=== PATIENT | male | born 1965 | race Two or more races ===

== ENCOUNTER 2016-03-01 13:46 | Inpatient (IN) | payer MEDICAID ==
[~2016-03-01] VITALS: Ht 170.2 cm; Wt 105.1 kg
[~2016-03-01 13:46] MED LIST: ACET-6 PO; ALL100T PO; ASPI-498 PO; CALC667T2 PO; CHOL50006 PO; DOC100C PO; FER325T PO; GABA300C8 PO; GLIP-116; Nifedipine PO; OMEP20CA5 PO; SIMV-8 PO; [UNRECOGNIZED DRUG - CODE] PO
[2016-03-01 17:31] LABS: Basophils # (auto) 0.1 uL; Basophils % (auto) 0.7 % (0.0-2.0); Eosinophils # (auto) 0 uL; Eosinophils % (auto) 0.1 % (0.0-7.0); Hematocrit 29.6 % (41.0-53.0); Hemoglobin 9.7 g/dL (13.5-17.5); Lymphocytes # (auto) 1.1 uL; Lymphocytes % (auto) 8.3 % (10.0-50.0); Mean Corpuscular Hgb Conc. 32.8 g/dL (32.0-36.0); Mean Corpuscular Volume 97.7 fL (80.0-100.0); Monocytes # (auto) 0.8 uL; Monocytes % (auto) 5.8 % (0.0-12.0); Neutrophils # (auto) 11.7 uL; Neutrophils % (auto) 85.1 % (37.0-80.0); Platelet Count (auto) 245 10^3/uL (140-450); Red Cell Distribution Width 15.3 % (11.6-16.0); White Blood Cell 13.7 10^3/uL (4.4-10.8)
[2016-03-01] MEDS ORDERED: cefTRIAXone 1GM/50ML D5W 50 ML IV ONE (18:30)
[2016-03-01] MEDS: ATORVASTATIN 20 MG TAB PO SCH (22:00)
[2016-03-01] MEDS ORDERED: ALLOPURINOL 100 MG TAB PO SCH (22:00)
[2016-03-01] MEDS ORDERED: DEXTROSE (50%) 50ML SYRG IV PRN (22:00)
[2016-03-01] MEDS ORDERED: AZITHROMYCIN 500MG/D5W 250ML 250 ML IV ONE (22:00)
[2016-03-01] MEDS ORDERED: GABAPENTIN 300 MG CAP PO SCH (22:00)
[2016-03-01] MEDS ORDERED: LACTULOSE 20Gm/30ML SOLN PO PRN (22:00)
[2016-03-01] MEDS ORDERED: ENOXAPARIN SOD 30 MG/0.3 ML SYRINGE SC ONE (22:15)
[2016-03-01 22:19] LABS: Potassium 6.7 mmol/L (3.5-5.1)
[2016-03-01 22:20] LABS: BUN/Creatinine Ratio 6.4
[2016-03-01] MEDS: DOCUSATE SOD 100 MG CAP PO SCH (22:35)
[2016-03-01] MEDS: ALBUTEROL SULF 2.5 MG/0.5ML(0.5%) NEB SOLN NEB SCH (23:41)
[2016-03-02] MEDS: ACCU-CHEK COMFORT CURVE STRIP VI SCH ×4 (00:06→17:50)
[2016-03-02 01:08] VITALS: BP 162/73
[2016-03-02] MEDS: ALBUTEROL SULF 2.5 MG/0.5ML(0.5%) NEB SOLN NEB SCH ×6 (02:43→22:33)
[2016-03-02 03:18] LABS: Basophils # (auto) 0 uL; Basophils % (auto) 0.3 % (0.0-2.0); Eosinophils # (auto) 0.1 uL; Hematocrit 29.5 % (41.0-53.0); Hemoglobin 9.6 g/dL (13.5-17.5); Lymphocytes # (auto) 1.7 uL; Lymphocytes % (auto) 14.6 % (10.0-50.0); Mean Corpuscular Hemoglobin 31.8 pg (28.0-32.0); Mean Corpuscular Hgb Conc. 32.7 g/dL (32.0-36.0); Mean Corpuscular Volume 97.4 fL (80.0-100.0); Mean Platelet Volume 8.2 fL (7.4-10.4); Monocytes # (auto) 0.9 uL; Monocytes % (auto) 7.7 % (0.0-12.0); Neutrophils % (auto) 76.4 % (37.0-80.0); Platelet Count (auto) 230 10^3/uL (140-450); White Blood Cell 11.8 10^3/uL (4.4-10.8)
[2016-03-02 03:37] LABS: Albumin 3.7 g/dL (3.4-5.0); Calcium 7.4 mg/dL (8.5-10.1)
[2016-03-02 03:45] LABS: BUN/Creatinine Ratio 7.1; Bilirubin, Total 0.4 mg/dL (0.2-1.0); Total Protein 7.1 g/dL (6.4-8.2)
[2016-03-02] MEDS: InsuLIN REG 1unit/0.01ml Soln (100units/ml) SC SCH ×4 (05:16→17:50)
[2016-03-02] MEDS: CALCIUM ACETATE 667 MG CAP PO SCH ×3 (08:00→18:00)
[2016-03-02] MEDS: FERROUS SULFATE 325 MG TAB PO SCH ×3 (08:00→17:49)
[2016-03-02] MEDS: cefTRIAXone 1GM/50ML D5W 50 ML IV SCH (09:00)
[2016-03-02] MEDS: ASPirin 81 mg TAB PO SCH (10:00)
[2016-03-02] MEDS: GABAPENTIN 100 MG CAP PO SCH (10:00)
[2016-03-02] MEDS: PANTOPRAZOLE SODIUM 40 MG/10 ML VIAL IV SCH (10:00)
[2016-03-02] MEDS: ALLOPURINOL 100 MG TAB PO SCH (10:00)
[2016-03-02] MEDS: ENOXAPARIN SOD 30 MG/0.3 ML SYRINGE SC SCH (10:00)
[2016-03-02] MEDS ORDERED: AZITHROMYCIN 500MG/D5W 250ML 250 ML IV SCH (10:00)
[2016-03-02] MEDS: DOCUSATE SOD 100 MG CAP PO SCH ×2 (10:00→20:54)
[2016-03-02] MEDS: NIFEdipine ER 30 MG TAB PO SCH (10:00)
[2016-03-02 12:55] VITALS: BP 175/89
[2016-03-02] MEDS ORDERED: SODIUM CHL 0.9% 1000 ML BAG XX ONE (14:15)
[2016-03-02] MEDS ORDERED: EPOETIN ALFA 10,000 UNIT/1 ML VIAL IV ONE (14:15)
[2016-03-02 16:00] VITALS: BP 131/71
[2016-03-02 20:39] VITALS: BP 163/77
[2016-03-02] MEDS ORDERED: ACETAMINOPHEN 325 MG TAB PO ONE (20:46)
[2016-03-02] MEDS: ATORVASTATIN 20 MG TAB PO SCH (20:54)
[2016-03-02] MEDS: AZITHROMYCIN 500MG/D5W 250ML 250 ML IV SCH (20:55)
[2016-03-02] MEDS: ACETAMINOPHEN 325 MG TAB PO PRN (21:19)
[2016-03-02 22:00] VITALS: BP 146/67
[2016-03-03] MEDS: ACCU-CHEK COMFORT CURVE STRIP VI SCH ×5 (00:21→23:07)
[2016-03-03] MEDS: InsuLIN REG 1unit/0.01ml Soln (100units/ml) SC SCH ×5 (00:25→23:12)
[2016-03-03] MEDS: ALBUTEROL SULF 2.5 MG/0.5ML(0.5%) NEB SOLN NEB SCH ×6 (02:57→22:40)
[2016-03-03 05:00] VITALS: BP 149/73
[2016-03-03 05:53] LABS: Basophils # (auto) 0 uL; Basophils % (auto) 0.5 % (0.0-2.0); DEFINITIVE VIEW TRANSMISSION; Eosinophils # (auto) 0 uL; Hematocrit 25.4 % (41.0-53.0); Hemoglobin 8.3 g/dL (13.5-17.5); Lymphocytes # (auto) 0.9 uL; Lymphocytes % (auto) 11.2 % (10.0-50.0); Mean Corpuscular Hemoglobin 31.7 pg (28.0-32.0); Mean Corpuscular Hgb Conc. 32.8 g/dL (32.0-36.0); Mean Corpuscular Volume 96.8 fL (80.0-100.0); Mean Platelet Volume 8.6 fL (7.4-10.4); Monocytes # (auto) 1.1 uL; Monocytes % (auto) 12.9 % (0.0-12.0); Neutrophils # (auto) 6.1 uL; Neutrophils % (auto) 75.4 % (37.0-80.0); Platelet Count (auto) 178 10^3/uL (140-450); Red Cell Distribution Width 14.8 % (11.6-16.0); White Blood Cell 8.1 10^3/uL (4.4-10.8)
[2016-03-03] MEDS: ACETAMINOPHEN 325 MG TAB PO PRN ×2 (06:14→21:16)
[2016-03-03] MEDS: THROAT LOZENGES(CEPASTAT) MT PRN ×2 (06:14→10:04)
[2016-03-03 06:15] LABS: Potassium 5.1 mmol/L (3.5-5.1)
[2016-03-03 06:23] LABS: BUN/Creatinine Ratio 6.5; Calcium 7.3 mg/dL (8.5-10.1); Magnesium 2.3 mg/dL (1.6-2.6)
[2016-03-03] MEDS: CALCIUM ACETATE 667 MG CAP PO SCH ×3 (08:09→18:04)
[2016-03-03] MEDS: FERROUS SULFATE 325 MG TAB PO SCH ×3 (08:09→18:04)
[2016-03-03 09:00] VITALS: BP 125/66
[2016-03-03] MEDS: PANTOPRAZOLE SODIUM 40 MG/10 ML VIAL IV SCH (09:47)
[2016-03-03] MEDS: ENOXAPARIN SOD 30 MG/0.3 ML SYRINGE SC SCH (09:47)
[2016-03-03] MEDS: cefTRIAXone 1GM/50ML D5W 50 ML IV SCH (09:47)
[2016-03-03] MEDS: DOCUSATE SOD 100 MG CAP PO SCH ×2 (09:47→21:15)
[2016-03-03] MEDS: ALLOPURINOL 100 MG TAB PO SCH (09:48)
[2016-03-03] MEDS: ASPirin 81 mg TAB PO SCH (09:48)
[2016-03-03] MEDS: GABAPENTIN 100 MG CAP PO SCH (09:48)
[2016-03-03] MEDS: NIFEdipine ER 30 MG TAB PO SCH (09:49)
[2016-03-03 13:00] VITALS: BP 118/59
[2016-03-03 17:00] VITALS: BP 130/72
[2016-03-03] MEDS: ATORVASTATIN 20 MG TAB PO SCH (21:15)
[2016-03-03] MEDS: AZITHROMYCIN 500MG/D5W 250ML 250 ML IV SCH (21:16)
[2016-03-03 21:47] VITALS: BP 132/72
[2016-03-04] VITALS (8 sets, daily range): BP systolic 115–161; BP diastolic 64–83
[2016-03-04] MEDS: ALBUTEROL SULF 2.5 MG/0.5ML(0.5%) NEB SOLN NEB SCH ×5 (02:45→19:37)
[2016-03-04] MEDS: InsuLIN REG 1unit/0.01ml Soln (100units/ml) SC SCH ×3 (05:30→18:00)
[2016-03-04] MEDS: ACCU-CHEK COMFORT CURVE STRIP VI SCH ×3 (05:30→18:16)
[2016-03-04 05:48] LABS: Basophils # (auto) 0.1 uL; Basophils % (auto) 1.1 % (0.0-2.0); DEFINITIVE VIEW TRANSMISSION; Eosinophils # (auto) 0.3 uL; Eosinophils % (auto) 4.9 % (0.0-7.0); Hematocrit 25.6 % (41.0-53.0); Hemoglobin 8.4 g/dL (13.5-17.5); Lymphocytes # (auto) 1.5 uL; Lymphocytes % (auto) 21.7 % (10.0-50.0); Mean Corpuscular Hemoglobin 31.9 pg (28.0-32.0); Mean Corpuscular Volume 96.9 fL (80.0-100.0); Mean Platelet Volume 8.5 fL (7.4-10.4); Monocytes # (auto) 0.9 uL; Monocytes % (auto) 13.5 % (0.0-12.0); Neutrophils % (auto) 58.8 % (37.0-80.0); Platelet Count (auto) 203 10^3/uL (140-450); Red Cell Distribution Width 15.1 % (11.6-16.0); White Blood Cell 6.8 10^3/uL (4.4-10.8)
[2016-03-04 06:31] LABS: BUN/Creatinine Ratio 7.2; Calcium 8.1 mg/dL (8.5-10.1); Magnesium 2.6 mg/dL (1.6-2.6)
[2016-03-04 06:42] LABS: Potassium 5.7 mmol/L (3.5-5.1)
[2016-03-04] MEDS ORDERED: SODIUM CHL 0.9% 1000 ML BAG XX ONE (08:00)
[2016-03-04] MEDS ORDERED: EPOETIN ALFA 10,000 UNIT/1 ML VIAL IV ONE (08:00)
[2016-03-04] MEDS: CALCIUM ACETATE 667 MG CAP PO SCH ×3 (08:09→18:16)
[2016-03-04] MEDS: FERROUS SULFATE 325 MG TAB PO SCH ×3 (08:09→18:16)
[2016-03-04] MEDS: cefTRIAXone 1GM/50ML D5W 50 ML IV SCH (09:00)
[2016-03-04] MEDS ORDERED: ALBUTEROL SULF 2.5 MG/0.5ML(0.5%) NEB SOLN ONE (09:55)
[2016-03-04] MEDS: DOCUSATE SOD 100 MG CAP PO SCH (10:00)
[2016-03-04] MEDS: NIFEdipine ER 30 MG TAB PO SCH (10:00)
[2016-03-04] MEDS: ENOXAPARIN SOD 30 MG/0.3 ML SYRINGE SC SCH (10:00)
[2016-03-04] MEDS ORDERED: DEXTROSE (50%) 50ML SYRG IV ONE (10:00)
[2016-03-04] MEDS ORDERED: InsuLIN REG 1unit/0.01ml Soln (100units/ml) IV ONE (10:00)
[2016-03-04] MEDS: ALLOPURINOL 100 MG TAB PO SCH (10:00)
[2016-03-04] MEDS: GABAPENTIN 100 MG CAP PO SCH (10:00)
[2016-03-04] MEDS ORDERED: ALBUTEROL SULF 2.5 MG/0.5ML(0.5%) NEB SOLN NEB ONE (10:00)
[2016-03-04] MEDS: ASPirin 81 mg TAB PO SCH (10:00)
[2016-03-04] MEDS: PANTOPRAZOLE SODIUM 40 MG/10 ML VIAL IV SCH (10:00)
[2016-03-04] MEDS ORDERED: LEVOFLOXACIN 500 MG TAB PO ONE (13:15)
[2016-03-04 14:01] LABS: Calcium 7.9 mg/dL (8.5-10.1); Potassium 5.4 mmol/L (3.5-5.1)
[2016-03-04 14:12] LABS: BUN/Creatinine Ratio 7.8
== END 2016-03-04 19:15 | disposition home or self-care (01) | DRG 139 ==
LOC: ER 13:48 → TELE 13:49 → DOU IN ICU 03-02 11:27 → TELE-WESTW 03-02 21:38
PROVIDERS: ADMIT Family Medicine; ATTEND Internal Medicine
PROC: 5A1D60Z (ICD-10-PCS; principal; 2016-03-03)
DX: J18.9 Pneumonia, unspecified organism (principal); J96.00 Acute respiratory failure, unspecified whether with hypoxia or hypercapnia; I12.0 Hypertensive chronic kidney disease with stage 5 chronic kidney disease or end stage renal disease; N18.6 End stage renal disease; E11.21 Type 2 diabetes mellitus with diabetic nephropathy; I27.2 Other secondary pulmonary hypertension; D63.1 Anemia in chronic kidney disease; E87.70 Fluid overload, unspecified; D72.829 Elevated white blood cell count, unspecified; E11.22 Type 2 diabetes mellitus with diabetic chronic kidney disease; E11.319 Type 2 diabetes mellitus with unspecified diabetic retinopathy without macular edema; E66.09 Other obesity due to excess calories; Z68.36 Body mass index [BMI] 36.0-36.9, adult; E78.5 Hyperlipidemia, unspecified; E87.5 Hyperkalemia; H54.0 Blindness, both eyes; J98.11 Atelectasis; K21.9 Gastro-esophageal reflux disease without esophagitis; M10.9 Gout, unspecified; Z82.49 Family history of ischemic heart disease and other diseases of the circulatory system; Z83.3 Family history of diabetes mellitus; Z99.2 Dependence on renal dialysis; Z98.890 Other specified postprocedural states
CPT/HCPCS: 36415; 71010; 71020; 71250; 80048; 80053; 80061; 82962; 83036; 83735; 84100; 84484; 85025; 87040; 87081; 90935; 93005; 94640; 94644; 96365; 96367; 96372; 96375; C9113; J0696; J0885; J1815

== ENCOUNTER 2016-06-11 11:05 | Inpatient (IN) | payer MEDICAID ==
[~2016-06-11] VITALS: Ht 170.2 cm; Wt 101.0 kg
[2016-06-11 12:06] LABS: Basophils # (auto) 0.1 uL; Basophils % (auto) 1.4 % (0.0-2.0); Eosinophils # (auto) 0 uL; Eosinophils % (auto) 0.4 % (0.0-7.0); Hematocrit 32.1 % (41.0-53.0); Hemoglobin 10.8 g/dL (13.5-17.5); Lymphocytes # (auto) 1.3 uL; Lymphocytes % (auto) 13.7 % (10.0-50.0); Mean Corpuscular Hemoglobin 30.7 pg (28.0-32.0); Mean Corpuscular Hgb Conc. 33.6 g/dL (32.0-36.0); Mean Corpuscular Volume 91.3 fL (80.0-100.0); Mean Platelet Volume 8.8 fL (7.4-10.4); Monocytes # (auto) 0.6 uL; Monocytes % (auto) 5.9 % (0.0-12.0); Neutrophils # (auto) 7.5 uL; Neutrophils % (auto) 78.6 % (37.0-80.0); Platelet Count (auto) 193 10^3/uL (140-450); Red Cell Distribution Width 14.5 % (11.6-16.0); White Blood Cell 9.6 10^3/uL (4.4-10.8)
[2016-06-11 12:24] LABS: INR 1.1 (0.9-1.15); Partial Thromboplastin Time 30.1 sec (22.64-33.71); Prothrombin Time 11.9 sec (9.37-12.3)
[2016-06-11 12:35] LABS: Albumin 3.8 g/dL (3.4-5.0); Bilirubin, Total 0.6 mg/dL (0.2-1.0); Calcium 8.5 mg/dL (8.5-10.1); Magnesium 3.1 mg/dL (1.6-2.6); Total Protein 7.6 g/dL (6.4-8.2)
[2016-06-11] MEDS ORDERED: ALBUTEROL SULF 2.5 MG/0.5ML(0.5%) NEB SOLN NEB STA ×2 (12:43→14:09)
[2016-06-11] MEDS ORDERED: CALCIUM GLUC 4.65 MEQ/10ML 4.65 MEQ in SODIUM CHL 0.9% 50 ML IV ONE ×2 (12:45→14:15)
[2016-06-11] MEDS ORDERED: SODIUM BICARBONATE 8.4% INJ 50ML SYRINGE IV ONE ×2 (12:45→14:15)
[2016-06-11] MEDS ORDERED: DEXTROSE (50%) 50ML SYRG IV ONE ×2 (12:45→14:15)
[2016-06-11] MEDS ORDERED: InsuLIN REG 1unit/0.01ml Soln (100units/ml) IV ONE ×2 (12:45→14:15)
[2016-06-11 13:19] LABS: B-Type Natriuretic Peptide 1055.67 pg/mL (0-100)
[2016-06-11 13:20] LABS: Temperature: 23.6 C (20.0-25.0)
[2016-06-11] MEDS ORDERED: PIPERACILLIN-TAZOB 3.375GM 100 ML IV ONE (14:15)
[2016-06-11] MEDS ORDERED: AZITHROMYCIN 500MG/D5W 250ML 250 ML IV ONE (14:15)
[2016-06-11] MEDS ORDERED: ONDANSETRON HCL 4 MG/2 ML VIAL IV PRN (14:30)
[2016-06-11] MEDS ORDERED: NITROGLYCERIN 0.4 MG SL TAB SL PRN (14:30)
[2016-06-11] MEDS ORDERED: MORPHINE SULF INJ 2 MG/ML SYRINGE 1ML IV PRN ×2 (14:30)
[2016-06-11] MEDS ORDERED: HYDROcodone-ACET 5/325MG TAB PO PRN (14:30)
[2016-06-11] MEDS ORDERED: DEXTROSE (50%) 50ML SYRG IV PRN (14:30)
[2016-06-11] MEDS ORDERED: cefTRIAXone 1GM/50ML D5W 50 ML IV ONE (15:00)
[2016-06-11] MEDS ORDERED: PANTOPRAZOLE SODIUM 40 MG/10 ML VIAL IV ONE (15:00)
[2016-06-11] MEDS ORDERED: NIFEdipine ER 30 MG TAB PO ONE (15:00)
[2016-06-11] MEDS ORDERED: EPOETIN ALFA 2,000 UNIT/1 ML VIAL IV ONE (15:45)
[2016-06-11] MEDS ORDERED: EPOETIN ALFA 3,000 UNIT/1 ML VIAL IV ONE (15:45)
[2016-06-11] MEDS: ACCU-CHEK COMFORT CURVE STRIP VI SCH ×2 (17:21→22:04)
[2016-06-11] MEDS: InsuLIN REG 1unit/0.01ml Soln (100units/ml) SC SCH ×2 (17:21→22:04)
[2016-06-11] MEDS: CALCIUM ACETATE 667 MG CAP PO SCH (18:21)
[2016-06-11 20:40] VITALS: BP 143/71
[2016-06-11 22:00] VITALS: BP 143/71
[2016-06-11] MEDS ORDERED: GABAPENTIN 300 MG CAP PO SCH (22:00)
[2016-06-11] MEDS ORDERED: GABAPENTIN 100 MG CAP PO SCH (22:00)
[2016-06-11] MEDS ORDERED: ATORVASTATIN 20 MG TAB PO SCH (22:00)
[2016-06-11 23:21] VITALS: BP 143/71
[2016-06-12 00:55] LABS: Urine Bilirubin Negative (Negative); Urine Color Yellow (Yellow); Urine Ketone Negative (Negative); Urine Nitrite Negative (Negative); Urine RBC 3 /hpf (0 - 3); Urine Squamous Epithelial Cell FEW /hpf (<5); Urine Urobilinogen Normal (Negative)
[2016-06-12 00:56] LABS: Urine Blood 1+ /uL (Negative); Urine Glucose 2+ mg/dL (Normal)
[2016-06-12 05:00] VITALS: BP 124/70
[2016-06-12 05:54] LABS: Basophils # (auto) 0 uL; Basophils % (auto) 0.7 % (0.0-2.0); Eosinophils # (auto) 0.2 uL; Eosinophils % (auto) 3.4 % (0.0-7.0); Hematocrit 29.2 % (41.0-53.0); Hemoglobin 9.6 g/dL (13.5-17.5); Lymphocytes # (auto) 1.5 uL; Lymphocytes % (auto) 21.3 % (10.0-50.0); Mean Corpuscular Hemoglobin 30.8 pg (28.0-32.0); Mean Corpuscular Hgb Conc. 32.9 g/dL (32.0-36.0); Mean Corpuscular Volume 93.5 fL (80.0-100.0); Mean Platelet Volume 9.1 fL (7.4-10.4); Monocytes # (auto) 0.8 uL; Monocytes % (auto) 10.8 % (0.0-12.0); Neutrophils # (auto) 4.6 uL; Neutrophils % (auto) 63.8 % (37.0-80.0); Platelet Count (auto) 196 10^3/uL (140-450); Red Cell Distribution Width 14.7 % (11.6-16.0); White Blood Cell 7.2 10^3/uL (4.4-10.8)
[2016-06-12] MEDS: ACCU-CHEK COMFORT CURVE STRIP VI SCH ×2 (06:23→12:18)
[2016-06-12 06:24] LABS: Calcium 7.7 mg/dL (8.5-10.1); Potassium 5.1 mmol/L (3.5-5.1)
[2016-06-12] MEDS: InsuLIN REG 1unit/0.01ml Soln (100units/ml) SC SCH ×2 (06:24→12:19)
[2016-06-12 08:00] VITALS: BP 122/69
[2016-06-12] MEDS: CALCIUM ACETATE 667 MG CAP PO SCH ×2 (08:07→12:18)
[2016-06-12 09:00] VITALS: BP 122/69
[2016-06-12] MEDS ORDERED: cefTRIAXone 1GM/50ML D5W 50 ML IV SCH (09:00)
[2016-06-12] MEDS ORDERED: PANTOPRAZOLE SODIUM 40 MG/10 ML VIAL IV SCH (10:00)
[2016-06-12] MEDS ORDERED: AZITHROMYCIN 500MG/D5W 250ML 250 ML IV SCH (10:00)
[2016-06-12] MEDS ORDERED: NIFEdipine ER 30 MG TAB PO SCH (10:00)
[2016-06-12] MEDS ORDERED: ALBUAER3 IN (12:29)
[2016-06-12] MEDS ORDERED: LEVO250T45 PO (12:29)
[2016-06-12] MEDS ORDERED: LEVOFLOXACIN 500 MG TAB PO ONE (12:30)
[2016-06-12 13:00] VITALS: BP 122/74
[2016-06-12 15:37] VITALS: BP 122/69
[2016-06-13] MEDS ORDERED: EPOETIN ALFA 10,000 UNIT/1 ML VIAL IV ONE (08:00)
[2016-06-13] MEDS ORDERED: SODIUM CHL 0.9% 1000 ML BAG XX ONE (08:00)
== END 2016-06-12 18:15 | disposition home health service (06) | DRG 139 ==
LOC: ER 11:07 → TELE 11:08 → TELE-WESTW 20:35
PROVIDERS: ADMIT Internal Medicine; ATTEND Internal Medicine
PROC: 5A1D00Z (ICD-10-PCS; principal; 2016-06-11)
DX: J18.9 Pneumonia, unspecified organism (principal); I50.43 Acute on chronic combined systolic (congestive) and diastolic (congestive) heart failure; N18.6 End stage renal disease; E11.21 Type 2 diabetes mellitus with diabetic nephropathy; E11.40 Type 2 diabetes mellitus with diabetic neuropathy, unspecified; I13.2 Hypertensive heart and chronic kidney disease with heart failure and with stage 5 chronic kidney disease, or end stage renal disease; E87.5 Hyperkalemia; Z99.2 Dependence on renal dialysis; E66.9 Obesity, unspecified; D63.8 Anemia in other chronic diseases classified elsewhere; E11.22 Type 2 diabetes mellitus with diabetic chronic kidney disease; E78.5 Hyperlipidemia, unspecified; K21.9 Gastro-esophageal reflux disease without esophagitis; Z82.49 Family history of ischemic heart disease and other diseases of the circulatory system; Z83.3 Family history of diabetes mellitus; K59.09 Other constipation; Z71.9 Counseling, unspecified; M10.9 Gout, unspecified
CPT/HCPCS: 36415; 71010; 71020; 74176; 80048; 80053; 81001; 82962; 83036; 83605; 83735; 83880; 84132; 85025; 85610; 85730; 87040; 94644; 94761; 96365; 96367; 96368; 96375; C9113; J0696; J0885; J1815; J2405; J2543; Q4081

== ENCOUNTER 2016-06-24 22:30 | Emergency (ER) | payer MEDICAID ==
[~2016-06-24] VITALS: Ht 162.6 cm; Wt 99.8 kg
[~2016-06-24 22:30] MED LIST changes: +ALBUAER3 IN; +LEVO250T45 PO
[2016-06-24] MEDS ORDERED: ACETAMINOPHEN 325 MG TAB PO ONE (23:30)
[2016-06-24 23:56] LABS: Basophils # (auto) 0.1 uL; Eosinophils # (auto) 0.1 uL; Eosinophils % (auto) 1.5 % (0.0-7.0); Hemoglobin 9.8 g/dL (13.5-17.5); Lymphocytes # (auto) 1.3 uL; Lymphocytes % (auto) 13.5 % (10.0-50.0); Mean Corpuscular Hemoglobin 30.3 pg (28.0-32.0); Mean Corpuscular Hgb Conc. 32.5 g/dL (32.0-36.0); Mean Corpuscular Volume 93.3 fL (80.0-100.0); Mean Platelet Volume 8.4 fL (7.4-10.4); Monocytes # (auto) 0.7 uL; Monocytes % (auto) 7.5 % (0.0-12.0); Neutrophils # (auto) 7.1 uL; Neutrophils % (auto) 76.5 % (37.0-80.0); Platelet Count (auto) 251 10^3/uL (140-450); Red Cell Distribution Width 14.4 % (11.6-16.0); White Blood Cell 9.3 10^3/uL (4.4-10.8)
[2016-06-25 00:08] LABS: Albumin 3.8 g/dL (3.4-5.0); Anion Gap 12 (5-15); Aspartate Aminotransferase 19 U/L (15-37); BUN/Creatinine Ratio 5.1; Blood Urea Nitrogen 37 mg/dL (7-18); Calcium 7.3 mg/dL (8.5-10.1); Carbon Dioxide 31 mmol/L (21-32); Chloride 96 mmol/L (98-107); GFR African American 10 mL/min; GFR Non-African American 8 mL/min; Glucose 109 mg/dL (74-106); Potassium 3.7 mmol/L (3.5-5.1); Sodium 139 mmol/L (136-145)
[2016-06-25 00:13] LABS: Alkaline Phosphatase 122 U/L (45-117); Bilirubin, Total 0.6 mg/dL (0.2-1.0); Total Protein 7.4 g/dL (6.4-8.2)
[2016-06-25] MEDS ORDERED: LEVOFLOXACIN 750MG 150 ML IV ONE (03:45)
[2016-06-25] MEDS ORDERED: SODIUM CHLORIDE 0.9% 500 ML IV ONE (03:45)
[2016-06-25 05:54] VITALS: BP 147/80
== END 2016-06-25 06:08 | disposition home or self-care (01) ==
LOC: EDBD 22:30 → ER 22:59
DX: J06.9 Acute upper respiratory infection, unspecified (principal); K52.9 Noninfective gastroenteritis and colitis, unspecified; E11.22 Type 2 diabetes mellitus with diabetic chronic kidney disease; I12.0 Hypertensive chronic kidney disease with stage 5 chronic kidney disease or end stage renal disease; N18.6 End stage renal disease; K21.9 Gastro-esophageal reflux disease without esophagitis; E78.5 Hyperlipidemia, unspecified
CPT/HCPCS: 36415; 71010; 80053; 83605; 84484; 85025; 87040; 93005; 96365; 99285; J1956; J7040

== ENCOUNTER 2016-09-16 00:54 | Inpatient (IN) | payer MEDICAID ==
[~2016-09-16] VITALS: Ht 170.2 cm; Wt 101.1 kg
[~2016-09-16 00:54] MED LIST changes: +GABA-497 PO; -GABA300C8 PO; -OMEP20CA5 PO; +OMEP20CA74 PO
[2016-09-16 01:33] LABS: Basophils # (auto) 0.1 uL; CONDITION Y; Eosinophils # (auto) 0.5 uL; Eosinophils % (auto) 6.1 % (0.0-7.0); Hematocrit 35.3 % (41.0-53.0); Hemoglobin 11.6 g/dL (13.5-17.5); Lymphocytes # (auto) 1.9 uL; Lymphocytes % (auto) 23.9 % (10.0-50.0); Mean Corpuscular Volume 93.8 fL (80.0-100.0); Mean Platelet Volume 8.2 fL (7.4-10.4); Monocytes # (auto) 0.9 uL; Monocytes % (auto) 10.9 % (0.0-12.0); Neutrophils # (auto) 4.6 uL; Neutrophils % (auto) 58.1 % (37.0-80.0); Platelet Count (auto) 275 10^3/uL (140-450); Red Cell Distribution Width 16.8 % (11.6-16.0); White Blood Cell 7.8 10^3/uL (4.4-10.8)
[2016-09-16 01:47] LABS: INR 1.06 (0.9-1.15); Partial Thromboplastin Time 27.8 sec (22.64-33.71); Prothrombin Time 11.6 sec (9.37-12.3)
[2016-09-16 01:51] LABS: Albumin 3.8 g/dL (3.4-5.0); Anion Gap 15 (5-15); Blood Urea Nitrogen 52 mg/dL (7-18); Calcium 7.5 mg/dL (8.5-10.1); Carbon Dioxide 28 mmol/L (21-32); Chloride 96 mmol/L (98-107); Glucose 169 mg/dL (74-106); Magnesium 2.6 mg/dL (1.6-2.6); Potassium 4.5 mmol/L (3.5-5.1); Sodium 139 mmol/L (136-145)
[2016-09-16 01:58] LABS: Temperature: 21.8 C (20.0-25.0)
[2016-09-16 01:59] LABS: Alkaline Phosphatase 158 U/L (45-117); Aspartate Aminotransferase 10 U/L (15-37); BUN/Creatinine Ratio 4.9; Bilirubin, Total 0.4 mg/dL (0.2-1.0); GFR African American 7 mL/min; GFR Non-African American 5 mL/min; Total Protein 7.4 g/dL (6.4-8.2)
[2016-09-16] MEDS ORDERED: DEXTROSE (50%) 50ML SYRG IV PRN (09:15)
[2016-09-16] MEDS ORDERED: ARTIFICIAL TEARS 15ml EACHEYE PRN (09:30)
[2016-09-16] MEDS ORDERED: LORazepam 0.5 MG TAB PO PRN (09:30)
[2016-09-16] MEDS ORDERED: ZOLPIDEM TARTRATE 5 MG TAB PO PRN (09:30)
[2016-09-16] MEDS ORDERED: ALUM & MAG HYDROX-SIMETH LIQ(MAALOX) 30 ML PO ONE (09:30)
[2016-09-16] MEDS ORDERED: ONDANSETRON HCL 4 MG/2 ML VIAL IV PRN (09:30)
[2016-09-16] MEDS ORDERED: ACETAMINOPHEN 325 MG TAB PO PRN (09:30)
[2016-09-16] MEDS ORDERED: NITROGLYCERIN 0.4 MG SL TAB SL PRN ×2 (09:30)
[2016-09-16] MEDS ORDERED: MORPHINE SULF INJ 2 MG/ML SYRINGE 1ML IV PRN ×2 (09:30)
[2016-09-16] MEDS ORDERED: SODIUM CHL 0.9% 1000 ML BAG XX ONE (10:00)
[2016-09-16] MEDS: CARVEDILOL 3.125 MG TAB PO SCH ×2 (10:30→22:29)
[2016-09-16] MEDS: GABAPENTIN 100 MG CAP PO SCH ×2 (10:30→22:30)
[2016-09-16] MEDS: CLOPIDOGREL BISULFATE 75 MG TAB PO SCH (10:30)
[2016-09-16] MEDS: ASPirin 81 mg TAB PO SCH (10:30)
[2016-09-16] MEDS: DOCUSATE SOD 100 MG CAP PO SCH (10:31)
[2016-09-16] MEDS: NIFEdipine ER 30 MG TAB PO SCH (10:31)
[2016-09-16] MEDS: ENALAPRIL MALEATE 2.5 MG TAB PO SCH ×2 (10:31→22:29)
[2016-09-16] MEDS: glipiZIDE 5 MG TAB PO SCH ×2 (11:05→18:45)
[2016-09-16] MEDS: CALCIUM ACETATE 667 MG CAP PO SCH ×2 (12:52→18:45)
[2016-09-16] MEDS: ACCU-CHEK COMFORT CURVE STRIP VI SCH ×3 (12:53→22:00)
[2016-09-16] MEDS: InsuLIN REG 1unit/0.01ml Soln (100units/ml) SC SCH ×3 (12:58→22:00)
[2016-09-16] MEDS ORDERED: GABAPENTIN 300 MG CAP PO SCH (14:00)
[2016-09-16 15:43] VITALS: BP 148/85
[2016-09-16] MEDS: SODIUM CHLOR 0.9% PF (SALINE LOCK) 10ML VIAL IV SCH ×2 (17:44→22:29)
[2016-09-16 20:00] VITALS: BP 142/84
[2016-09-16 22:00] VITALS: BP 142/84
[2016-09-16] MEDS: ATORVASTATIN 20 MG TAB PO SCH (22:28)
[2016-09-17 05:00] VITALS: BP 147/78
[2016-09-17] MEDS: SODIUM CHLOR 0.9% PF (SALINE LOCK) 10ML VIAL IV SCH ×3 (06:24→21:52)
[2016-09-17] MEDS: glipiZIDE 5 MG TAB PO SCH ×2 (06:24→17:41)
[2016-09-17] MEDS: ACCU-CHEK COMFORT CURVE STRIP VI SCH ×4 (06:24→21:54)
[2016-09-17] MEDS: InsuLIN REG 1unit/0.01ml Soln (100units/ml) SC SCH ×4 (06:25→21:54)
[2016-09-17 06:50] LABS: Basophils # (auto) 0.1 uL; CONDITION Y; Eosinophils # (auto) 0.5 uL; Eosinophils % (auto) 7.1 % (0.0-7.0); Hematocrit 37.4 % (41.0-53.0); Hemoglobin 12.3 g/dL (13.5-17.5); Lymphocytes # (auto) 1.5 uL; Lymphocytes % (auto) 23.3 % (10.0-50.0); Mean Corpuscular Hemoglobin 30.8 pg (28.0-32.0); Mean Corpuscular Hgb Conc. 32.8 g/dL (32.0-36.0); Mean Corpuscular Volume 93.7 fL (80.0-100.0); Mean Platelet Volume 8.6 fL (7.4-10.4); Monocytes # (auto) 0.7 uL; Monocytes % (auto) 10.9 % (0.0-12.0); Neutrophils # (auto) 3.8 uL; Neutrophils % (auto) 57.7 % (37.0-80.0); Platelet Count (auto) 268 10^3/uL (140-450); Red Cell Distribution Width 17.2 % (11.6-16.0); White Blood Cell 6.6 10^3/uL (4.4-10.8)
[2016-09-17 07:26] LABS: BUN/Creatinine Ratio 4.5; Bilirubin, Total 0.5 mg/dL (0.2-1.0); Calcium 8.9 mg/dL (8.5-10.1); Magnesium 2.9 mg/dL (1.6-2.6); Potassium 4.4 mmol/L (3.5-5.1); Total Protein 7.8 g/dL (6.4-8.2)
[2016-09-17 08:00] VITALS: BP 164/91
[2016-09-17] MEDS: CALCIUM ACETATE 667 MG CAP PO SCH ×3 (08:00→18:07)
[2016-09-17 08:30] VITALS: BP 164/91
[2016-09-17] MEDS: ASPirin 81 mg TAB PO SCH (10:12)
[2016-09-17] MEDS: NIFEdipine ER 30 MG TAB PO SCH ×2 (10:12→23:23)
[2016-09-17] MEDS: CLOPIDOGREL BISULFATE 75 MG TAB PO SCH (10:12)
[2016-09-17] MEDS: ENALAPRIL MALEATE 2.5 MG TAB PO SCH (10:13)
[2016-09-17] MEDS: GABAPENTIN 100 MG CAP PO SCH ×2 (10:13→21:53)
[2016-09-17] MEDS: DOCUSATE SOD 100 MG CAP PO SCH (10:13)
[2016-09-17] MEDS: CARVEDILOL 3.125 MG TAB PO SCH ×2 (10:13→21:53)
[2016-09-17] MEDS ORDERED: CLOPIDOGREL 300 MG TAB PO ONE (12:15)
[2016-09-17 16:23] VITALS: BP 148/76
[2016-09-17 20:00] VITALS: BP 166/82
[2016-09-17] MEDS: ATORVASTATIN 20 MG TAB PO SCH (21:53)
[2016-09-17] MEDS: ENALAPRIL MALEATE 10 MG TAB PO SCH (21:54)
[2016-09-17 22:00] VITALS: BP 166/82
[2016-09-18 05:00] VITALS: BP 149/82
[2016-09-18] MEDS: ACCU-CHEK COMFORT CURVE STRIP VI SCH ×4 (06:22→21:53)
[2016-09-18] MEDS: SODIUM CHLOR 0.9% PF (SALINE LOCK) 10ML VIAL IV SCH ×3 (06:22→21:38)
[2016-09-18] MEDS: glipiZIDE 5 MG TAB PO SCH ×2 (06:23→18:00)
[2016-09-18] MEDS: InsuLIN REG 1unit/0.01ml Soln (100units/ml) SC SCH ×4 (06:23→22:08)
[2016-09-18 08:00] VITALS: BP 168/93
[2016-09-18 09:16] VITALS: BP 168/93
[2016-09-18] MEDS: CALCIUM ACETATE 667 MG CAP PO SCH ×3 (09:27→18:00)
[2016-09-18] MEDS: ASPirin 81 mg TAB PO SCH (09:27)
[2016-09-18] MEDS: ENALAPRIL MALEATE 10 MG TAB PO SCH ×2 (09:28→21:37)
[2016-09-18] MEDS: GABAPENTIN 100 MG CAP PO SCH ×2 (09:28→21:38)
[2016-09-18] MEDS: CLOPIDOGREL BISULFATE 75 MG TAB PO SCH (09:28)
[2016-09-18] MEDS: NIFEdipine ER 30 MG TAB PO SCH ×2 (09:29→21:38)
[2016-09-18] MEDS: CARVEDILOL 3.125 MG TAB PO SCH ×2 (09:29→21:37)
[2016-09-18] MEDS: DOCUSATE SOD 100 MG CAP PO SCH (09:29)
[2016-09-18] MEDS ORDERED: ERGOCALCIFEROL 50,000 UNIT(1.25MG) CAP PO SCH (10:00)
[2016-09-18] MEDS ORDERED: SODIUM CHL 0.9% 1000 ML BAG XX ONE (10:15)
[2016-09-18] MEDS: LIDOCAINE 2%HCL (LOCAL ANESTH.) INJ 20ML MDV ONE (10:58)
[2016-09-18] MEDS: IODIXANOL 320MG/ML 100ML BTL IV ONE ×2 (10:58→14:04)
[2016-09-18] MEDS: MIDAZOLAM HCL 1MG/1ML-2 ML VIAL ONE (12:35)
[2016-09-18] MEDS: SODIUM CHL 0.9% 50 ML ONE (12:36)
[2016-09-18] MEDS: fentaNYL CITRATE 100 MCG/2 ML VL ONE (12:36)
[2016-09-18] MEDS: ANGIOMAX 250 MG VIAL IV ONE (12:36)
[2016-09-18] MEDS: TICAGRELOR 90 MG TAB ONE ×2 (14:30→14:40)
[2016-09-18] MEDS ORDERED: ASPirin 325 MG TAB ONE (14:31)
[2016-09-18 17:00] VITALS: BP 124/72
[2016-09-18] MEDS: ATORVASTATIN 20 MG TAB PO SCH (21:38)
[2016-09-18 22:00] VITALS: BP 140/75
[2016-09-19] VITALS (7 sets, daily range): BP systolic 124–148; BP diastolic 66–82
[2016-09-19] MEDS: glipiZIDE 5 MG TAB PO SCH ×2 (06:11→18:00)
[2016-09-19] MEDS: InsuLIN REG 1unit/0.01ml Soln (100units/ml) SC SCH ×3 (06:19→17:00)
[2016-09-19] MEDS: SODIUM CHLOR 0.9% PF (SALINE LOCK) 10ML VIAL IV SCH ×2 (06:19→14:00)
[2016-09-19] MEDS: ACCU-CHEK COMFORT CURVE STRIP VI SCH ×3 (06:19→17:00)
[2016-09-19] MEDS: CALCIUM ACETATE 667 MG CAP PO SCH ×3 (10:18→18:44)
[2016-09-19] MEDS: NIFEdipine ER 30 MG TAB PO SCH (10:18)
[2016-09-19] MEDS: DOCUSATE SOD 100 MG CAP PO SCH (10:18)
[2016-09-19] MEDS: CLOPIDOGREL BISULFATE 75 MG TAB PO SCH (10:19)
[2016-09-19] MEDS: ASPirin 81 mg TAB PO SCH (10:19)
[2016-09-19] MEDS: CARVEDILOL 3.125 MG TAB PO SCH (10:19)
[2016-09-19] MEDS: GABAPENTIN 100 MG CAP PO SCH (10:19)
[2016-09-19] MEDS: ENALAPRIL MALEATE 10 MG TAB PO SCH (10:20)
[2016-09-19] MEDS ORDERED: SODIUM CHL 0.9% 1000 ML BAG XX ONE (12:45)
[2016-09-19] MEDS ORDERED: ENA10T PO (13:03)
[2016-09-19] MEDS ORDERED: CAR3125T PO (13:03)
[2016-09-19] MEDS ORDERED: ASPI81CH43 PO (13:03)
[2016-09-19] MEDS ORDERED: CLOP75TA28 PO (13:03)
[2016-09-19] MEDS ORDERED: NIFEdipine ER 30 MG TAB PO SCH (18:00)
== END 2016-09-19 18:55 | disposition home or self-care (01) | DRG 175 ==
LOC: ER 00:54 → TELE 00:55 → TELE-E-ADS 14:49 → TELE-WESTW 17:58
PROVIDERS: ADMIT Internal Medicine; ATTEND Hospitalist
PROC: 5A1D60Z (ICD-10-PCS; 2016-09-16)
PROC: 027034Z Dilation of Coronary Artery, One Artery with Drug-eluting Intraluminal Device, Percutaneous Approach (ICD-10-PCS; principal; 2016-09-18)
PROC: 4A023N7 Measurement of Cardiac Sampling and Pressure, Left Heart, Percutaneous Approach (ICD-10-PCS; 2016-09-18)
PROC: B2111ZZ Fluoroscopy of Multiple Coronary Arteries using Low Osmolar Contrast (ICD-10-PCS; 2016-09-18)
DX: I25.110 Atherosclerotic heart disease of native coronary artery with unstable angina pectoris (principal); I50.43 Acute on chronic combined systolic (congestive) and diastolic (congestive) heart failure; N18.6 End stage renal disease; E11.21 Type 2 diabetes mellitus with diabetic nephropathy; I13.2 Hypertensive heart and chronic kidney disease with heart failure and with stage 5 chronic kidney disease, or end stage renal disease; E11.22 Type 2 diabetes mellitus with diabetic chronic kidney disease; M10.9 Gout, unspecified; E66.9 Obesity, unspecified; K21.9 Gastro-esophageal reflux disease without esophagitis; E78.5 Hyperlipidemia, unspecified; E78.00 Pure hypercholesterolemia, unspecified; D63.1 Anemia in chronic kidney disease; K59.09 Other constipation; Z95.1 Presence of aortocoronary bypass graft; Z79.84 Long term (current) use of oral hypoglycemic drugs; Z79.899 Other long term (current) drug therapy; Z82.49 Family history of ischemic heart disease and other diseases of the circulatory system; I25.2 Old myocardial infarction; Z83.3 Family history of diabetes mellitus; Z99.2 Dependence on renal dialysis; Z91.19 Patient's noncompliance with other medical treatment and regimen; Z79.82 Long term (current) use of aspirin; Z68.34 Body mass index [BMI] 34.0-34.9, adult; Z83.511 Family history of glaucoma; Z84.1 Family history of disorders of kidney and ureter
CPT/HCPCS: 36415; 71010; 73630; 80053; 80061; 82962; 83036; 83735; 83880; 84443; 84484; 84550; 85025; 85610; 85730; 87081; 90935; 92928; 93005; 93458; 99152; C1874; C1887; J1642; J1815; J2250; J2405; Q9967

== ENCOUNTER 2017-01-13 00:47 | Inpatient (IN) | payer MEDICAID ==
[~2017-01-13] VITALS: Ht 170.2 cm; Wt 103.8 kg
[~2017-01-13 00:47] MED LIST changes: +ASPI81CH43 PO; +CAR3125T PO; +CLOP75TA28 PO; +ENA10T PO; -LEVO250T45 PO
[2017-01-13 02:14] LABS: Albumin 3.6 g/dL (3.4-5.0); Anion Gap 10 (5-15); Aspartate Aminotransferase 10 U/L (15-37); BUN/Creatinine Ratio 5.8; Blood Urea Nitrogen 66 mg/dL (7-18); Calcium 8.2 mg/dL (8.5-10.1); Carbon Dioxide 26 mmol/L (21-32); Chloride 100 mmol/L (98-107); GFR African American 6 mL/min; GFR Non-African American 5 mL/min; Glucose 179 mg/dL (74-106); INR 1.09 (0.9-1.15); Partial Thromboplastin Time 28.6 sec (22.64-33.71); Prothrombin Time 11.9 sec (9.37-12.3); Sodium 136 mmol/L (136-145)
[2017-01-13 02:20] LABS: Potassium 5.8 mmol/L (3.5-5.1)
[2017-01-13 02:22] LABS: Alkaline Phosphatase 144 U/L (45-117); Bilirubin, Total < 0.1 mg/dL (0.2-1.0); Total Protein 6.9 g/dL (6.4-8.2)
[2017-01-13 02:26] LABS: Temperature: 22.5 C (20.0-25.0)
[2017-01-13 02:27] LABS: Basophils # (auto) 0.1 uL; Basophils % (auto) 0.8 % (0.0-2.0); Eosinophils # (auto) 0.3 uL; Hematocrit 28.7 % (41.0-53.0); Hemoglobin 9.6 g/dL (13.5-17.5); Lymphocytes # (auto) 1.2 uL; Lymphocytes % (auto) 15.2 % (10.0-50.0); Mean Corpuscular Hgb Conc. 33.5 g/dL (32.0-36.0); Mean Corpuscular Volume 92.5 fL (80.0-100.0); Monocytes # (auto) 0.8 uL; Monocytes % (auto) 10.3 % (0.0-12.0); Neutrophils # (auto) 5.4 uL; Neutrophils % (auto) 69.7 % (37.0-80.0); Platelet Count (auto) 189 10^3/uL (140-450); Red Cell Distribution Width 19.8 % (11.8-14.3); White Blood Cell 7.7 10^3/uL (4.4-10.8)
[2017-01-13] MEDS ORDERED: SODIUM BICARBONATE 8.4 % INJ 50ML VIAL IV ONE (03:30)
[2017-01-13] MEDS ORDERED: DEXTROSE (50%) 50ML SYRG IV ONE (03:30)
[2017-01-13] MEDS ORDERED: FUROSEMIDE 20 MG/2 ML VIAL IV ONE (03:30)
[2017-01-13] MEDS ORDERED: SODIUM POLYSTYRENE SULF 15GM/60ML SUSP PO ONE ×2 (03:30→09:15)
[2017-01-13] MEDS ORDERED: InsuLIN REG 1unit/0.01ml Soln (100units/ml) IV ONE (03:30)
[2017-01-13] MEDS ORDERED: cloNIDine HCL 0.1 MG TAB PO PRN (09:00)
[2017-01-13] MEDS ORDERED: ONDANSETRON HCL 4 MG/2 ML VIAL IV PRN (09:00)
[2017-01-13] MEDS ORDERED: NITROGLYCERIN 0.4 MG SL TAB SL PRN (09:00)
[2017-01-13] MEDS ORDERED: DEXTROSE (50%) 50ML SYRG IV PRN (09:00)
[2017-01-13] MEDS ORDERED: HYDROcodone-ACET 5/325MG TAB PO PRN (09:00)
[2017-01-13] MEDS ORDERED: HYDROmorphone HCL 2 MG/ML VL IV PRN (09:00)
[2017-01-13] MEDS ORDERED: ACETAMINOPHEN 325 MG TAB PO PRN (09:00)
[2017-01-13] MEDS ORDERED: ARTIFICIAL TEARS 15ml EACHEYE PRN (09:00)
[2017-01-13] MEDS ORDERED: DOCUSATE SOD 100 MG CAP PO PRN (09:00)
[2017-01-13] MEDS ORDERED: TEMAZEPAM 15 MG CAP PO PRN (09:00)
[2017-01-13] MEDS ORDERED: TROLAMINE SALICYLATE 10% TOP CREAM TOP PRN (09:15)
[2017-01-13] MEDS: CLOPIDOGREL BISULFATE 75 MG TAB PO SCH (09:23)
[2017-01-13] MEDS: NIFEdipine ER 30 MG TAB PO SCH (09:23)
[2017-01-13] MEDS: ASPirin-EC 81 mg tab PO SCH (09:23)
[2017-01-13] MEDS: CARVEDILOL 3.125 MG TAB PO SCH ×2 (09:23→22:10)
[2017-01-13] MEDS: MULTIPLE VITAMIN TAB PO SCH (09:23)
[2017-01-13] MEDS: GABAPENTIN 300 MG CAP PO SCH (09:24)
[2017-01-13] MEDS: ALLOPURINOL 100 MG TAB PO SCH (09:24)
[2017-01-13] MEDS: PANTOPRAZOLE 40 MG TAB PO SCH (09:24)
[2017-01-13] MEDS ORDERED: ENALAPRIL MALEATE 10 MG TAB PO SCH (10:00)
[2017-01-13] MEDS: ALBUTEROL SULF 2.5 MG/0.5ML(0.5%) NEB SOLN NEB SCH ×2 (11:44→20:33)
[2017-01-13] MEDS ORDERED: ERGOCALCIFEROL 50,000 UNIT(1.25MG) CAP PO SCH (12:00)
[2017-01-13] MEDS: ACCU-CHEK COMFORT CURVE STRIP VI SCH ×3 (12:41→22:10)
[2017-01-13] MEDS: CALCIUM ACETATE 667 MG CAP PO SCH ×2 (12:41→18:35)
[2017-01-13] MEDS: SODIUM CHLOR 0.9% PF (SALINE LOCK) 10ML VIAL IV SCH ×2 (12:47→22:10)
[2017-01-13] MEDS: InsuLIN REG 1unit/0.01ml Soln (100units/ml) SC SCH ×3 (12:47→22:00)
[2017-01-13] MEDS ORDERED: GABAPENTIN 300 MG CAP PO SCH (14:00)
[2017-01-13 14:44] VITALS: BP 154/84
[2017-01-13] MEDS ORDERED: EPOETIN ALFA 10,000 UNIT/1 ML VIAL IV ONE (17:00)
[2017-01-13 17:37] VITALS: BP 146/81
[2017-01-13] MEDS ORDERED: INFLUENZA QUAD 2017-2018 0.5 ML SYRG IM ONE (18:00)
[2017-01-13] MEDS: glipiZIDE 5 MG TAB PO SCH (18:35)
[2017-01-13] MEDS: FERROUS SULFATE 325 MG TAB PO SCH (18:36)
[2017-01-13] MEDS ORDERED: ATORVASTATIN 20 MG TAB PO SCH (22:00)
[2017-01-13 22:06] VITALS: BP 160/75
[2017-01-14] MEDS: ALBUTEROL SULF 2.5 MG/0.5ML(0.5%) NEB SOLN NEB SCH ×2 (01:23→07:06)
[2017-01-14 06:00] LABS: Basophils # (auto) 0.1 uL; Basophils % (auto) 0.8 % (0.0-2.0); Eosinophils # (auto) 0.2 uL; Eosinophils % (auto) 2.4 % (0.0-7.0); Hematocrit 26.9 % (41.0-53.0); Hemoglobin 9.3 g/dL (13.5-17.5); Lymphocytes # (auto) 1.3 uL; Mean Corpuscular Hemoglobin 31.7 pg (28.0-32.0); Mean Corpuscular Hgb Conc. 34.5 g/dL (32.0-36.0); Mean Corpuscular Volume 91.7 fL (80.0-100.0); Monocytes # (auto) 0.8 uL; Monocytes % (auto) 11.8 % (0.0-12.0); Neutrophils # (auto) 4.1 uL; Nucleated Red Blood Cells % 0.1 %; Platelet Count (auto) 198 10^3/uL (140-450); Red Cell Distribution Width 19.8 % (11.8-14.3); White Blood Cell 6.4 10^3/uL (4.4-10.8)
[2017-01-14 06:06] VITALS: BP 126/62
[2017-01-14 06:14] LABS: Albumin 3.7 g/dL (3.4-5.0); Alkaline Phosphatase 143 U/L (45-117); Anion Gap 10 (5-15); Aspartate Aminotransferase 10 U/L (15-37); Bilirubin, Total 0.6 mg/dL (0.2-1.0); Blood Urea Nitrogen 46 mg/dL (7-18); Carbon Dioxide 30 mmol/L (21-32); Chloride 97 mmol/L (98-107); GFR African American 8 mL/min; GFR Non-African American 6 mL/min; Glucose 89 mg/dL (74-106); Potassium 4.6 mmol/L (3.5-5.1); Sodium 137 mmol/L (136-145); Total Protein 7.1 g/dL (6.4-8.2)
[2017-01-14] MEDS: ACCU-CHEK COMFORT CURVE STRIP VI SCH ×2 (06:32→11:48)
[2017-01-14] MEDS: glipiZIDE 5 MG TAB PO SCH (06:32)
[2017-01-14] MEDS: InsuLIN REG 1unit/0.01ml Soln (100units/ml) SC SCH ×2 (06:32→11:56)
[2017-01-14] MEDS: SODIUM CHLOR 0.9% PF (SALINE LOCK) 10ML VIAL IV SCH (06:33)
[2017-01-14] MEDS: FERROUS SULFATE 325 MG TAB PO SCH (08:06)
[2017-01-14] MEDS: CALCIUM ACETATE 667 MG CAP PO SCH ×2 (08:06→13:48)
[2017-01-14 09:00] VITALS: BP 140/68
[2017-01-14] MEDS ORDERED: ENALAPRIL MALEATE 10 MG TAB PO SCH (10:00)
[2017-01-14] MEDS: GABAPENTIN 300 MG CAP PO SCH (10:09)
[2017-01-14] MEDS: CLOPIDOGREL BISULFATE 75 MG TAB PO SCH (10:09)
[2017-01-14] MEDS: MULTIPLE VITAMIN TAB PO SCH (10:09)
[2017-01-14] MEDS: ALLOPURINOL 100 MG TAB PO SCH (10:09)
[2017-01-14] MEDS: PANTOPRAZOLE 40 MG TAB PO SCH (10:09)
[2017-01-14] MEDS: ASPirin-EC 81 mg tab PO SCH (10:09)
[2017-01-14] MEDS: CARVEDILOL 3.125 MG TAB PO SCH (10:10)
[2017-01-14] MEDS: NIFEdipine ER 30 MG TAB PO SCH (10:11)
[2017-01-14 11:18] VITALS: BP 140/68
[2017-01-14 11:24] LABS: Urine Bilirubin Negative (Negative); Urine Blood Negative /uL (Negative); Urine Color Yellow (Yellow); Urine Glucose 1+ mg/dL (Normal); Urine Ketone Negative (Negative); Urine Nitrite Negative (Negative); Urine RBC 1 /hpf (0 - 3); Urine Sperm PRESENT /hpf (None Seen); Urine Squamous Epithelial Cell FEW /hpf (<5); Urine Urobilinogen Normal (Negative); Urine pH 8.5 (5.0-8.0)
[2017-01-14] MEDS ORDERED: ERGOCALCIFEROL 50,000 UNIT(1.25MG) CAP PO SCH (12:00)
[2017-01-14 13:00] VITALS: BP_SYST 150; BP_SYST 155; BP_DIAS 71; BP_DIAS 74
== END 2017-01-14 14:00 | disposition home or self-care (01) | DRG 194 ==
LOC: ER 00:49 → TELE 00:50 → TELE-WESTW 16:41
PROVIDERS: ADMIT Internal Medicine; ATTEND Internal Medicine
PROC: 5A1D70Z Performance of Urinary Filtration, Intermittent, Less than 6 Hours Per Day (ICD-10-PCS; principal; 2017-01-13)
DX: I13.2 Hypertensive heart and chronic kidney disease with heart failure and with stage 5 chronic kidney disease, or end stage renal disease (principal); N18.6 End stage renal disease; E11.21 Type 2 diabetes mellitus with diabetic nephropathy; I50.43 Acute on chronic combined systolic (congestive) and diastolic (congestive) heart failure; I25.118 Atherosclerotic heart disease of native coronary artery with other forms of angina pectoris; E87.5 Hyperkalemia; E78.5 Hyperlipidemia, unspecified; E66.9 Obesity, unspecified; E11.22 Type 2 diabetes mellitus with diabetic chronic kidney disease; D63.8 Anemia in other chronic diseases classified elsewhere; G89.4 Chronic pain syndrome; K21.9 Gastro-esophageal reflux disease without esophagitis; K59.09 Other constipation; I50.9 Heart failure, unspecified; M10.9 Gout, unspecified; Z23 Encounter for immunization; Z79.02 Long term (current) use of antithrombotics/antiplatelets; Z79.82 Long term (current) use of aspirin; Z82.49 Family history of ischemic heart disease and other diseases of the circulatory system; Z83.3 Family history of diabetes mellitus; Z95.5 Presence of coronary angioplasty implant and graft; Z99.2 Dependence on renal dialysis; Z68.35 Body mass index [BMI] 35.0-35.9, adult
CPT/HCPCS: 36415; 71010; 73620; 80053; 81001; 82962; 83036; 83735; 83880; 84132; 84443; 84484; 85025; 85379; 85610; 85730; 87081; 90935; 93005; 93306; 94640; 96374; 96375; J0885; J1815

== ENCOUNTER 2017-05-19 17:04 | Emergency (ER) | payer MEDICAID ==
[~2017-05-19] VITALS: Ht 167.6 cm; Wt 98.4 kg
[~2017-05-19 17:04] MED LIST changes: -ASPI81CH43 PO; -GABA-497 PO; +GABA300C10 PO
[2017-05-19] MEDS ORDERED: ACETAMINOPHEN 325 MG TAB PO ONE ×2 (17:24→17:30)
[2017-05-19 17:31] VITALS: BP 158/74
== END 2017-05-19 20:05 | disposition left against medical advice (07) ==
LOC: ER 17:04
DX: R05 Cough (principal); Z53.21 Procedure and treatment not carried out due to patient leaving prior to being seen by health care provider

== ENCOUNTER 2017-05-20 23:57 | Emergency (ER) | payer MEDICAID ==
[~2017-05-20] VITALS: Ht 170.2 cm; Wt 93.9 kg
[2017-05-21] MEDS ORDERED: IPRATROPIUM BROM 0.5 MG/2.5ML INH SOL NEB ONE (00:15)
[2017-05-21] MEDS ORDERED: ALBUTEROL SULF 2.5 MG/0.5ML(0.5%) NEB SOLN NEB ONE (00:15)
[2017-05-21 00:43] LABS: Basophils # (auto) 0.1 uL; Eosinophils # (auto) 0.2 uL; Hematocrit 31.6 % (41.0-53.0); Hemoglobin 10.4 g/dL (13.5-17.5); Lymphocytes # (auto) 0.9 uL; Lymphocytes % (auto) 18.3 % (10.0-50.0); Mean Corpuscular Hemoglobin 30.7 pg (28.0-32.0); Mean Corpuscular Hgb Conc. 32.8 g/dL (32.0-36.0); Mean Corpuscular Volume 93.5 fL (80.0-100.0); Monocytes # (auto) 0.8 uL; Monocytes % (auto) 16.9 % (0.0-12.0); Neutrophils # (auto) 2.8 uL; Neutrophils % (auto) 56.8 % (37.0-80.0); Nucleated Red Blood Cells % 0.1 %; Platelet Count (auto) 140 10^3/uL (140-450); Red Blood Cells 3.38 10^6/uL (4.5-5.90); Red Cell Distribution Width 16.7 % (11.8-14.3); White Blood Cell 4.9 10^3/uL (4.4-10.8)
[2017-05-21 00:57] LABS: INR 1.12 (0.9-1.15); Partial Thromboplastin Time 33.4 sec (22.64-33.71); Prothrombin Time 12.2 sec (9.37-12.3)
[2017-05-21 01:02] LABS: Alanine Aminotransferase 39 U/L (16-61); Albumin 3.8 g/dL (3.4-5.0); Amylase 51 U/L (25-115); Anion Gap 12 (5-15); Blood Urea Nitrogen 46 mg/dL (7-18); Calcium 7.7 mg/dL (8.5-10.1); Carbon Dioxide 26 mmol/L (21-32); Chloride 97 mmol/L (98-107); Glucose 88 mg/dL (74-106); Lipase 193 U/L (73-393); Magnesium 2.2 mg/dL (1.6-2.6); Potassium 5.5 mmol/L (3.5-5.1); Sodium 135 mmol/L (136-145)
[2017-05-21 01:09] LABS: Alkaline Phosphatase 169 U/L (45-117); Aspartate Aminotransferase 22 U/L (15-37); BUN/Creatinine Ratio 4.4; Bilirubin, Total 0.5 mg/dL (0.2-1.0); GFR African American 7 mL/min; GFR Non-African American 6 mL/min; Total Protein 7.3 g/dL (6.4-8.2)
[2017-05-21 05:25] LABS: Urine Amorphous Crystal FEW /hpf (None Seen); Urine Bacteria FEW /hpf (None Seen); Urine Blood 1+ /uL (Negative); Urine Hyaline Cast FEW /lpf (0 - 2); Urine Specific Gravity 1.016 (1.001-1.035); Urine WBC 1 /hpf (0 - 3)
[2017-05-21 06:51] VITALS: BP 140/84
== END 2017-05-21 06:25 | disposition home or self-care (01) ==
LOC: ER 05-21 00:04
DX: I13.2 Hypertensive heart and chronic kidney disease with heart failure and with stage 5 chronic kidney disease, or end stage renal disease (principal); E11.22 Type 2 diabetes mellitus with diabetic chronic kidney disease; N18.6 End stage renal disease; I50.9 Heart failure, unspecified; I20.9 Angina pectoris, unspecified; M10.9 Gout, unspecified; Z79.899 Other long term (current) drug therapy
CPT/HCPCS: 36415; 71045; 74176; 80053; 81001; 82150; 83605; 83690; 83735; 84484; 85025; 85610; 85730; 87040; 87086; 94640

== ENCOUNTER 2017-06-25 00:25 | Emergency (ER) | payer MEDICAID ==
[~2017-06-25] VITALS: Ht 170.2 cm; Wt 98.0 kg
[2017-06-25 00:38] VITALS: BP 156/76
[2017-06-25 01:03] LABS: Basophils # (auto) 0 uL; Basophils % (auto) 0.9 % (0.0-2.0); Eosinophils # (auto) 0.3 uL; Eosinophils % (auto) 6.3 % (0.0-7.0); Hematocrit 33.2 % (41.0-53.0); Hemoglobin 11.1 g/dL (13.5-17.5); Lymphocytes # (auto) 1.3 uL; Lymphocytes % (auto) 26.1 % (10.0-50.0); Mean Corpuscular Hgb Conc. 33.4 g/dL (32.0-36.0); Monocytes # (auto) 0.6 uL; Monocytes % (auto) 12.1 % (0.0-12.0); Neutrophils # (auto) 2.6 uL; Neutrophils % (auto) 54.6 % (37.0-80.0); Nucleated Red Blood Cells % 0.8 %; Platelet Count (auto) 142 10^3/uL (140-450); Red Blood Cells 3.57 10^6/uL (4.5-5.90); Red Cell Distribution Width 16.3 % (11.8-14.3); White Blood Cell 4.8 10^3/uL (4.4-10.8)
[2017-06-25 01:06] LABS: Alanine Aminotransferase 28 U/L (16-61); Albumin 3.9 g/dL (3.4-5.0); Anion Gap 10 (5-15); Aspartate Aminotransferase 19 U/L (15-37); BUN/Creatinine Ratio 3.3; Blood Urea Nitrogen 24 mg/dL (7-18); Calcium 7.9 mg/dL (8.5-10.1); Carbon Dioxide 30 mmol/L (21-32); Chloride 98 mmol/L (98-107); GFR African American 10 mL/min; GFR Non-African American 8 mL/min; Glucose 86 mg/dL (74-106); Magnesium 2.4 mg/dL (1.6-2.6); Potassium 4.8 mmol/L (3.5-5.1); Sodium 138 mmol/L (136-145)
[2017-06-25 01:11] LABS: Alkaline Phosphatase 154 U/L (45-117); Bilirubin, Total 0.4 mg/dL (0.2-1.0); INR 1.11 (0.9-1.15); Partial Thromboplastin Time 30.2 sec (22.64-33.71); Prothrombin Time 12.1 sec (9.37-12.3); Total Protein 7.3 g/dL (6.4-8.2)
== END 2017-06-25 05:00 | disposition left against medical advice (07) ==
LOC: ER 00:26
DX: R07.89 Other chest pain (principal); Z53.21 Procedure and treatment not carried out due to patient leaving prior to being seen by health care provider
CPT/HCPCS: 36415; 71046; 80053; 83735; 83880; 84484; 85025; 85610; 85730; 93005

== ENCOUNTER 2017-06-25 16:56 | Inpatient (IN) | payer MEDICAID ==
[~2017-06-25] VITALS: Ht 170.2 cm; Wt 96.5 kg
[2017-06-25 18:59] LABS: Basophils # (auto) 0.1 uL; Basophils % (auto) 1.1 % (0.0-2.0); Eosinophils # (auto) 0.3 uL; Hematocrit 35.6 % (41.0-53.0); Hemoglobin 11.7 g/dL (13.5-17.5); Lymphocytes # (auto) 1.4 uL; Lymphocytes % (auto) 26.4 % (10.0-50.0); Mean Corpuscular Hemoglobin 30.6 pg (28.0-32.0); Mean Corpuscular Hgb Conc. 32.9 g/dL (32.0-36.0); Monocytes # (auto) 0.7 uL; Neutrophils % (auto) 55.5 % (37.0-80.0); Nucleated Red Blood Cells % 0.1 %; Platelet Count (auto) 146 10^3/uL (140-450); Red Blood Cells 3.83 10^6/uL (4.5-5.90); Red Cell Distribution Width 16.4 % (11.8-14.3); White Blood Cell 5.4 10^3/uL (4.4-10.8)
[2017-06-25 19:24] LABS: Alanine Aminotransferase 27 U/L (16-61); Albumin 4.2 g/dL (3.4-5.0); Alkaline Phosphatase 168 U/L (45-117); Anion Gap 8 (5-15); Aspartate Aminotransferase 21 U/L (15-37); BUN/Creatinine Ratio 2.9; Bilirubin, Total 0.5 mg/dL (0.2-1.0); Blood Urea Nitrogen 28 mg/dL (7-18); Calcium 8.5 mg/dL (8.5-10.1); Carbon Dioxide 31 mmol/L (21-32); Chloride 97 mmol/L (98-107); GFR African American 7 mL/min; GFR Non-African American 6 mL/min; Glucose 65 mg/dL (74-106); Magnesium 2.8 mg/dL (1.6-2.6); Sodium 136 mmol/L (136-145); Total Protein 7.8 g/dL (6.4-8.2)
[2017-06-25 19:53] LABS: Potassium 5.8 mmol/L (3.5-5.1)
[2017-06-25] MEDS ORDERED: DEXTROSE (50%) 50ML SYRG IV ONE (22:00)
[2017-06-25] MEDS ORDERED: InsuLIN REG 1unit/0.01ml Soln (100units/ml) IV ONE (22:00)
[2017-06-25] MEDS ORDERED: SODIUM BICARBONATE 8.4 % INJ 50ML VIAL IV ONE (22:00)
[2017-06-25] MEDS ORDERED: CALCIUM GLUC 4.65meq/50ml D5AE 50 ML IV ONE (22:00)
[2017-06-25] MEDS ORDERED: SODIUM POLYSTYRENE SULF 15GM/60ML SUSP PO ONE (22:00)
[2017-06-25] MEDS ORDERED: DEXTROSE 50% SYRINGE 50 ML IV ONE (23:23)
[2017-06-26] MEDS ORDERED: cefTRIAXone 1GM/10ml IVPUSH 10 ML IV ONE (00:17)
[2017-06-26 00:54] LABS: BUN/Creatinine Ratio 3.3; Calcium 8.8 mg/dL (8.5-10.1); Potassium 4.5 mmol/L (3.5-5.1)
[2017-06-26] MEDS ORDERED: MORPHINE SULFATE 8mg/ml INJ SDV IV PRN (03:00)
[2017-06-26] MEDS ORDERED: HYDROcodone-ACET 5/325MG TAB PO PRN (03:00)
[2017-06-26] MEDS ORDERED: ACETAMINOPHEN 500 MG TAB PO PRN (03:00)
[2017-06-26] MEDS: ONDANSETRON HCL 4 MG/2 ML VIAL IV PRN ×3 (05:16→17:46)
[2017-06-26] MEDS: glipiZIDE 5 MG TAB PO SCH ×2 (07:00→17:45)
[2017-06-26] MEDS ORDERED: LABETALOL HCL 5 MG/ML ML 20ML VIAL IV PRN (08:30)
[2017-06-26] MEDS: cefTRIAXone 1GM/10ml IVPUSH 10 ML IV SCH (08:43)
[2017-06-26] MEDS: ENALAPRIL MALEATE 10 MG TAB PO SCH ×2 (08:44→22:20)
[2017-06-26] MEDS: CARVEDILOL 3.125 MG TAB PO SCH ×2 (08:44→22:20)
[2017-06-26] MEDS: ASPirin-EC 81 mg tab PO SCH (08:44)
[2017-06-26] MEDS: GABAPENTIN 300 MG CAP PO SCH ×2 (08:45→22:20)
[2017-06-26 08:49] LABS: Urine Bacteria FEW /hpf (None Seen); Urine Blood 1+ /uL (Negative); Urine Specific Gravity 1.009 (1.001-1.035); Urine WBC 2 /hpf (0 - 3)
[2017-06-26 09:00] VITALS: BP 182/85
[2017-06-26] MEDS ORDERED: PANTOPRAZOLE 40 MG TAB PO ONE (12:15)
[2017-06-26 12:58] VITALS: BP 177/90
[2017-06-26] MEDS ORDERED: DEXTROSE (50%) 50ML SYRG IV ONE (13:45)
[2017-06-26] MEDS ORDERED: DEXTROSE (50%) 50ML SYRG IV PRN ×2 (14:15)
[2017-06-26 15:54] VITALS: BP 182/83
[2017-06-26] MEDS: SODIUM CHLORIDE 0.9% 1,000 ML IV SCH (16:03)
[2017-06-26] MEDS: metroNIDAZOLE 500MG/100ML 100 ML IV SCH ×2 (16:04→22:19)
[2017-06-26 17:00] VITALS: BP 158/69
[2017-06-26] MEDS ORDERED: InsuLIN REG 1unit/0.01ml Soln (100units/ml) SC ONE (17:00)
[2017-06-26] MEDS: InsuLIN REG 1unit/0.01ml Soln (100units/ml) SC SCH ×2 (17:00→22:00)
[2017-06-26] MEDS ORDERED: ACCU-CHEK COMFORT CURVE STRIP VI ONE (17:00)
[2017-06-26] MEDS: ACCU-CHEK COMFORT CURVE STRIP VI SCH ×2 (17:31→22:21)
[2017-06-26 20:00] VITALS: BP 160/73
[2017-06-26 22:00] VITALS: BP 60/73
[2017-06-27 05:30] VITALS: BP 133/77
[2017-06-27 06:06] LABS: INR 1.14 (0.9-1.15); Partial Thromboplastin Time 31.6 sec (22.64-33.71); Prothrombin Time 12.4 sec (9.37-12.3)
[2017-06-27 06:08] LABS: Basophils # (auto) 0 uL; Basophils % (auto) 0.9 % (0.0-2.0); Eosinophils # (auto) 0.3 uL; Eosinophils % (auto) 7.5 % (0.0-7.0); Hematocrit 30.6 % (41.0-53.0); Hemoglobin 10.4 g/dL (13.5-17.5); Lymphocytes # (auto) 1.1 uL; Mean Corpuscular Hemoglobin 31.4 pg (28.0-32.0); Mean Corpuscular Volume 92.4 fL (80.0-100.0); Monocytes # (auto) 0.7 uL; Monocytes % (auto) 14.8 % (0.0-12.0); Neutrophils # (auto) 2.5 uL; Neutrophils % (auto) 52.8 % (37.0-80.0); Nucleated Red Blood Cells % 0.1 %; Platelet Count (auto) 123 10^3/uL (140-450); Red Blood Cells 3.31 10^6/uL (4.5-5.90); Red Cell Distribution Width 15.9 % (11.8-14.3); White Blood Cell 4.6 10^3/uL (4.4-10.8)
[2017-06-27 06:19] LABS: Calcium 7.9 mg/dL (8.5-10.1); Magnesium 2.7 mg/dL (1.6-2.6); Potassium 4.1 mmol/L (3.5-5.1)
[2017-06-27] MEDS: metroNIDAZOLE 500MG/100ML 100 ML IV SCH (06:33)
[2017-06-27] MEDS: glipiZIDE 5 MG TAB PO SCH (06:33)
[2017-06-27] MEDS: ACCU-CHEK COMFORT CURVE STRIP VI SCH ×2 (06:34→12:53)
[2017-06-27] MEDS: InsuLIN REG 1unit/0.01ml Soln (100units/ml) SC SCH ×2 (06:34→11:30)
[2017-06-27 09:00] VITALS: BP 163/71
[2017-06-27] MEDS: GABAPENTIN 300 MG CAP PO SCH (09:04)
[2017-06-27] MEDS: ASPirin-EC 81 mg tab PO SCH (09:05)
[2017-06-27] MEDS: CARVEDILOL 3.125 MG TAB PO SCH (09:05)
[2017-06-27] MEDS: cefTRIAXone 1GM/10ml IVPUSH 10 ML IV SCH (09:05)
[2017-06-27] MEDS: ENALAPRIL MALEATE 10 MG TAB PO SCH (09:06)
[2017-06-27] MEDS ORDERED: PANTOPRAZOLE 40 MG TAB PO SCH (10:00)
[2017-06-27] MEDS: SODIUM CHLORIDE 0.9% 1,000 ML IV SCH (10:45)
[2017-06-27] MEDS ORDERED: LEVO250T45 PO (11:52)
[2017-06-27] MEDS ORDERED: LEVOFLOXACIN 500 MG TAB PO ONE (12:00)
[2017-06-27 12:39] VITALS: BP 160/74
== END 2017-06-27 13:15 | disposition home or self-care (01) | DRG 463 ==
LOC: ER 17:02 → TELE 17:03 → TELE-WESTW 06-26 07:38
PROVIDERS: ADMIT Nurse Practitioner Family; ATTEND Internal Medicine
PROC: 5A1D70Z Performance of Urinary Filtration, Intermittent, Less than 6 Hours Per Day (ICD-10-PCS; principal; 2017-06-26)
DX: N30.00 Acute cystitis without hematuria (principal); I13.2 Hypertensive heart and chronic kidney disease with heart failure and with stage 5 chronic kidney disease, or end stage renal disease; N18.6 End stage renal disease; E11.22 Type 2 diabetes mellitus with diabetic chronic kidney disease; N25.81 Secondary hyperparathyroidism of renal origin; K81.9 Cholecystitis, unspecified; E11.40 Type 2 diabetes mellitus with diabetic neuropathy, unspecified; K52.9 Noninfective gastroenteritis and colitis, unspecified; E87.70 Fluid overload, unspecified; E87.5 Hyperkalemia; E78.5 Hyperlipidemia, unspecified; I25.10 Atherosclerotic heart disease of native coronary artery without angina pectoris; I50.9 Heart failure, unspecified; K21.9 Gastro-esophageal reflux disease without esophagitis; M10.9 Gout, unspecified; D63.8 Anemia in other chronic diseases classified elsewhere; Z99.2 Dependence on renal dialysis; Z79.02 Long term (current) use of antithrombotics/antiplatelets; Z79.84 Long term (current) use of oral hypoglycemic drugs; Z79.899 Other long term (current) drug therapy; Z91.15 Patient's noncompliance with renal dialysis; Z91.19 Patient's noncompliance with other medical treatment and regimen; Z82.49 Family history of ischemic heart disease and other diseases of the circulatory system; Z83.3 Family history of diabetes mellitus
CPT/HCPCS: 36415; 74176; 76700; 78226; 80048; 80053; 81001; 82962; 83735; 84484; 85025; 85610; 85730; 87045; 87086; 87493; 87899; 93005; 96374; 96375; J0610; J1815; J2405; J3490

== ENCOUNTER 2017-07-06 02:41 | Emergency (ER) | payer MEDICAID ==
[~2017-07-06] VITALS: Ht 170.2 cm; Wt 99.8 kg
[~2017-07-06 02:41] MED LIST changes: +LEVO250T45 PO
[2017-07-06 02:47] VITALS: BP 161/74
[2017-07-06 04:27] LABS: Basophils # (auto) 0.1 uL; Basophils % (auto) 1.1 % (0.0-2.0); Eosinophils # (auto) 0.4 uL; Hematocrit 34.1 % (41.0-53.0); Hemoglobin 11.5 g/dL (13.5-17.5); Lymphocytes # (auto) 1.5 uL; Mean Corpuscular Hemoglobin 30.8 pg (28.0-32.0); Mean Corpuscular Hgb Conc. 33.8 g/dL (32.0-36.0); Mean Corpuscular Volume 91.1 fL (80.0-100.0); Monocytes # (auto) 0.7 uL; Monocytes % (auto) 13.7 % (0.0-12.0); Neutrophils # (auto) 2.4 uL; Neutrophils % (auto) 48.2 % (37.0-80.0); Nucleated Red Blood Cells % 0.3 %; Platelet Count (auto) 186 10^3/uL (140-450); Red Blood Cells 3.75 10^6/uL (4.5-5.90); Red Cell Distribution Width 15.3 % (11.8-14.3); White Blood Cell 5.1 10^3/uL (4.4-10.8)
[2017-07-06 05:04] LABS: Albumin 3.8 g/dL (3.4-5.0); Bilirubin, Total 0.5 mg/dL (0.2-1.0); Calcium 9.3 mg/dL (8.5-10.1); Magnesium 2.7 mg/dL (1.6-2.6); Potassium 4.4 mmol/L (3.5-5.1); Total Protein 7.1 g/dL (6.4-8.2)
== END 2017-07-06 07:59 | disposition left against medical advice (07) ==
LOC: ER 02:41
DX: R10.9 Unspecified abdominal pain (principal); Z53.21 Procedure and treatment not carried out due to patient leaving prior to being seen by health care provider
CPT/HCPCS: 36415; 71045; 80053; 83690; 83735; 83880; 84484; 85025; 93005

== ENCOUNTER 2017-07-21 12:52 | Inpatient (IN) | payer MEDICAID ==
[~2017-07-21] VITALS: Ht 170.2 cm; Wt 95.6 kg
[2017-07-21 13:39] LABS: Basophils # (auto) 0 uL; Basophils % (auto) 0.4 % (0.0-2.0); Eosinophils # (auto) 0.7 uL; Eosinophils % (auto) 8.3 % (0.0-7.0); Hematocrit 37.4 % (41.0-53.0); Hemoglobin 12.6 g/dL (13.5-17.5); Lymphocytes # (auto) 1.3 uL; Lymphocytes % (auto) 15.8 % (10.0-50.0); Mean Corpuscular Hemoglobin 29.8 pg (28.0-32.0); Mean Corpuscular Hgb Conc. 33.6 g/dL (32.0-36.0); Mean Corpuscular Volume 88.7 fL (80.0-100.0); Monocytes # (auto) 0.9 uL; Monocytes % (auto) 10.6 % (0.0-12.0); Neutrophils # (auto) 5.2 uL; Neutrophils % (auto) 64.9 % (37.0-80.0); Platelet Count (auto) 259 10^3/uL (140-450); Red Blood Cells 4.22 10^6/uL (4.5-5.90); Red Cell Distribution Width 15.3 % (11.8-14.3); White Blood Cell 8.1 10^3/uL (4.4-10.8)
[2017-07-21] MEDS ORDERED: MORPHINE SULFATE 4 MG/ML SYR/VIAL IV ONE (14:00)
[2017-07-21] MEDS ORDERED: ONDANSETRON HCL 4 MG/2 ML VIAL IV ONE (14:00)
[2017-07-21] MEDS ORDERED: SODIUM CHLORIDE 0.9% 500 ML IVB ONE (14:00)
[2017-07-21] MEDS ORDERED: PANTOPRAZOLE 40 MG/10 ML VIAL IV STA (14:00)
[2017-07-21 14:11] LABS: Albumin 3.4 g/dL (3.4-5.0); BUN/Creatinine Ratio 1.9; Bilirubin, Total 0.8 mg/dL (0.2-1.0); Calcium 8.9 mg/dL (8.5-10.1); Potassium 3.9 mmol/L (3.5-5.1); Total Protein 7.3 g/dL (6.4-8.2)
[2017-07-21] MEDS ORDERED: cefTRIAXone 1GM/10ml IVPUSH 10 ML IV ONE (16:00)
[2017-07-21] MEDS ORDERED: DEXTROSE (50%) 50ML SYRG IV PRN (16:00)
[2017-07-21] MEDS: InsuLIN REG 1unit/0.01ml Soln (100units/ml) SC SCH (18:35)
[2017-07-21] MEDS: ACCU-CHEK COMFORT CURVE STRIP VI SCH (18:35)
[2017-07-21 19:55] VITALS: BP 157/75
[2017-07-21] MEDS: metroNIDAZOLE 500MG/100ML 100 ML IV SCH (21:32)
[2017-07-21] MEDS: ONDANSETRON HCL 4 MG/2 ML VIAL IV PRN (21:33)
[2017-07-21 22:00] VITALS: BP 157/75
[2017-07-21] MEDS: CARVEDILOL 3.125 MG TAB PO SCH (22:04)
[2017-07-22] MEDS: ACCU-CHEK COMFORT CURVE STRIP VI SCH ×5 (00:27→23:41)
[2017-07-22] MEDS: MORPHINE SULFATE 8mg/ml INJ SDV IV PRN ×2 (00:38→23:28)
[2017-07-22] MEDS: ONDANSETRON HCL 4 MG/2 ML VIAL IV PRN ×3 (04:52→23:31)
[2017-07-22 05:00] VITALS: BP 174/80
[2017-07-22] MEDS: InsuLIN REG 1unit/0.01ml Soln (100units/ml) SC SCH ×5 (06:00→23:40)
[2017-07-22] MEDS: metroNIDAZOLE 500MG/100ML 100 ML IV SCH ×3 (06:24→23:08)
[2017-07-22 06:59] LABS: Basophils # (auto) 0.1 uL; Eosinophils # (auto) 0.7 uL; Eosinophils % (auto) 11.9 % (0.0-7.0); Hematocrit 33.8 % (41.0-53.0); Hemoglobin 11.3 g/dL (13.5-17.5); Lymphocytes # (auto) 0.9 uL; Lymphocytes % (auto) 14.1 % (10.0-50.0); Mean Corpuscular Hemoglobin 29.8 pg (28.0-32.0); Mean Corpuscular Hgb Conc. 33.4 g/dL (32.0-36.0); Mean Corpuscular Volume 89.4 fL (80.0-100.0); Monocytes # (auto) 0.9 uL; Monocytes % (auto) 14.4 % (0.0-12.0); Neutrophils # (auto) 3.6 uL; Neutrophils % (auto) 58.6 % (37.0-80.0); Nucleated Red Blood Cells % 0.1 %; Platelet Count (auto) 204 10^3/uL (140-450); Red Blood Cells 3.78 10^6/uL (4.5-5.90); White Blood Cell 6.2 10^3/uL (4.4-10.8)
[2017-07-22 07:33] LABS: Calcium 8.6 mg/dL (8.5-10.1)
[2017-07-22 08:28] VITALS: BP 152/67
[2017-07-22] MEDS: PANTOPRAZOLE 40 MG/10 ML VIAL IV SCH (09:12)
[2017-07-22] MEDS: CARVEDILOL 3.125 MG TAB PO SCH ×2 (09:13→23:10)
[2017-07-22] MEDS: cefTRIAXone 1GM/10ml IVPUSH 10 ML IV SCH (09:13)
[2017-07-22] MEDS: D5W/SOD CHL 0.45% 1,000 ML IV SCH (10:39)
[2017-07-22] MEDS ORDERED: SODIUM CHL 0.9% 1000 ML BAG XX ONE (10:45)
[2017-07-22 12:54] VITALS: BP 161/72
[2017-07-22] MEDS: HYDROcodone-ACET 5/325MG TAB PO PRN (12:55)
[2017-07-22 16:31] VITALS: BP 170/83
[2017-07-22] MEDS ORDERED: ACETAMINOPHEN 500 MG TAB PO PRN (16:45)
[2017-07-22] MEDS: cloNIDine HCL 0.1 MG TAB PO PRN (17:21)
[2017-07-22] MEDS: hydrALAZINE HCL 20 MG/ML VL IV PRN (19:01)
[2017-07-22 22:00] VITALS: BP 157/78
[2017-07-23 05:30] VITALS: BP 145/78
[2017-07-23] MEDS: InsuLIN REG 1unit/0.01ml Soln (100units/ml) SC SCH ×4 (06:00→23:21)
[2017-07-23] MEDS: metroNIDAZOLE 500MG/100ML 100 ML IV SCH ×3 (06:21→21:59)
[2017-07-23] MEDS: D5W/SOD CHL 0.45% 1,000 ML IV SCH ×2 (06:22→19:50)
[2017-07-23] MEDS: ONDANSETRON HCL 4 MG/2 ML VIAL IV PRN ×3 (06:23→18:18)
[2017-07-23] MEDS: HYDROcodone-ACET 5/325MG TAB PO PRN ×2 (06:35→23:17)
[2017-07-23] MEDS: ACCU-CHEK COMFORT CURVE STRIP VI SCH ×4 (07:45→23:22)
[2017-07-23 09:00] VITALS: BP 149/60
[2017-07-23] MEDS: CARVEDILOL 3.125 MG TAB PO SCH ×2 (09:24→22:00)
[2017-07-23] MEDS: cefTRIAXone 1GM/10ml IVPUSH 10 ML IV SCH (09:24)
[2017-07-23] MEDS: PANTOPRAZOLE 40 MG/10 ML VIAL IV SCH (09:24)
[2017-07-23] MEDS ORDERED: SODIUM CHL 0.9% 1000 ML BAG XX ONE (11:45)
[2017-07-23 13:00] VITALS: BP 154/64
[2017-07-23 16:47] VITALS: BP 168/81
[2017-07-23] MEDS: cloNIDine HCL 0.1 MG TAB PO PRN ×2 (16:51→23:11)
[2017-07-23 19:35] LABS: Urine Bacteria NONE SEEN /hpf (None Seen); Urine Blood Negative /uL (Negative); Urine Specific Gravity 1.012 (1.001-1.035); Urine Sperm PRESENT /hpf (None Seen); Urine WBC 15 /hpf (0 - 3)
[2017-07-23 21:24] VITALS: BP 166/81
[2017-07-24] MEDS: hydrALAZINE HCL 20 MG/ML VL IV PRN (00:22)
[2017-07-24 04:58] VITALS: BP 167/74
[2017-07-24] MEDS: metroNIDAZOLE 500MG/100ML 100 ML IV SCH ×2 (05:46→14:38)
[2017-07-24] MEDS: ACCU-CHEK COMFORT CURVE STRIP VI SCH ×3 (05:47→17:23)
[2017-07-24] MEDS: cloNIDine HCL 0.1 MG TAB PO PRN ×2 (05:47→17:22)
[2017-07-24] MEDS: InsuLIN REG 1unit/0.01ml Soln (100units/ml) SC SCH ×3 (06:00→17:23)
[2017-07-24 06:38] LABS: Basophils # (auto) 0.1 uL; Basophils % (auto) 0.9 % (0.0-2.0); Eosinophils # (auto) 0.8 uL; Eosinophils % (auto) 12.8 % (0.0-7.0); Hematocrit 31.5 % (41.0-53.0); Hemoglobin 10.7 g/dL (13.5-17.5); Lymphocytes # (auto) 0.8 uL; Lymphocytes % (auto) 12.1 % (10.0-50.0); Mean Corpuscular Hemoglobin 30.4 pg (28.0-32.0); Mean Corpuscular Hgb Conc. 34.1 g/dL (32.0-36.0); Mean Corpuscular Volume 89.2 fL (80.0-100.0); Monocytes # (auto) 0.9 uL; Neutrophils # (auto) 3.8 uL; Neutrophils % (auto) 60.2 % (37.0-80.0); Nucleated Red Blood Cells % 0.1 %; Platelet Count (auto) 193 10^3/uL (140-450); Red Blood Cells 3.53 10^6/uL (4.5-5.90); Red Cell Distribution Width 15.4 % (11.8-14.3); White Blood Cell 6.3 10^3/uL (4.4-10.8)
[2017-07-24 06:45] LABS: INR 1.13 (0.9-1.15); Partial Thromboplastin Time 34.3 sec (23.78-33.04)
[2017-07-24 06:58] LABS: BUN/Creatinine Ratio 1.9; Magnesium 2.3 mg/dL (1.6-2.6); Potassium 3.7 mmol/L (3.5-5.1)
[2017-07-24] MEDS: ONDANSETRON HCL 4 MG/2 ML VIAL IV PRN (07:45)
[2017-07-24 09:00] VITALS: BP 162/81
[2017-07-24] MEDS: PANTOPRAZOLE 40 MG/10 ML VIAL IV SCH (10:58)
[2017-07-24] MEDS: cefTRIAXone 1GM/10ml IVPUSH 10 ML IV SCH (10:58)
[2017-07-24] MEDS: CARVEDILOL 3.125 MG TAB PO SCH ×2 (11:09→22:01)
[2017-07-24] MEDS ORDERED: GOLYTELY 4L KIT PO ONE (12:00)
[2017-07-24 13:00] VITALS: BP 150/73
[2017-07-24] MEDS: D5W/SOD CHL 0.45% 1,000 ML IV SCH (14:42)
[2017-07-24] MEDS ORDERED: metroNIDAZOLE 500 MG TAB PO ONE (16:30)
[2017-07-24 17:00] VITALS: BP 185/81
[2017-07-24] MEDS: VANCOMYCIN HCL 125MG/5ML ORAL SOL PO SCH ×2 (18:24→22:01)
[2017-07-24] MEDS ORDERED: metroNIDAZOLE 500 MG TAB PO SCH (22:00)
[2017-07-24 22:58] VITALS: BP 170/70
[2017-07-25] MEDS: ACCU-CHEK COMFORT CURVE STRIP VI SCH ×5 (00:09→23:09)
[2017-07-25] MEDS: hydrALAZINE HCL 20 MG/ML VL IV PRN ×3 (00:10→12:25)
[2017-07-25] MEDS: MORPHINE SULFATE 8mg/ml INJ SDV IV PRN (01:36)
[2017-07-25] MEDS: ONDANSETRON HCL 4 MG/2 ML VIAL IV PRN (01:40)
[2017-07-25 01:46] VITALS: BP 150/77
[2017-07-25] MEDS: D5W/SOD CHL 0.45% 1,000 ML IV SCH ×2 (05:40→21:40)
[2017-07-25] MEDS: VANCOMYCIN HCL 125MG/5ML ORAL SOL PO SCH ×4 (05:40→21:41)
[2017-07-25] MEDS: cloNIDine HCL 0.1 MG TAB PO PRN (05:41)
[2017-07-25 05:44] VITALS: BP 161/76
[2017-07-25] MEDS: InsuLIN REG 1unit/0.01ml Soln (100units/ml) SC SCH ×5 (05:57→23:08)
[2017-07-25] MEDS ORDERED: GOLYTELY 4L KIT PO ONE (06:00)
[2017-07-25] MEDS ORDERED: SODIUM CHLORIDE LOCK 10 ML ONE (08:19)
[2017-07-25] MEDS ORDERED: diphenhdrAMINE HCL 50 MG/1 ML VL ONE (08:20)
[2017-07-25 08:41] VITALS: BP 178/75
[2017-07-25] MEDS: PANTOPRAZOLE 40 MG/10 ML VIAL IV SCH (10:00)
[2017-07-25] MEDS: CARVEDILOL 3.125 MG TAB PO SCH ×2 (10:00→21:41)
[2017-07-25] MEDS ORDERED: SODIUM CHL 0.9% 1000 ML BAG XX ONE (11:00)
[2017-07-25] MEDS: cefTRIAXone 1GM/10ml IVPUSH 10 ML IV SCH (11:00)
[2017-07-25] MEDS ORDERED: EPOETIN ALFA 2,000 UNIT/1 ML VIAL IV ONE (11:00)
[2017-07-25 13:00] VITALS: BP 192/84
[2017-07-25] MEDS: fentaNYL CITRATE 100 MCG/2 ML VL ONE ×2 (16:20→16:40)
[2017-07-25] MEDS: MIDAZOLAM HCL 5 MG/ML-1ML VIAL ONE ×2 (16:20→16:37)
[2017-07-25] MEDS ORDERED: LIDOCAINE VISCOUS 2% 15ML UD ONE (16:23)
[2017-07-25 22:00] VITALS: BP 172/81
[2017-07-26] MEDS: hydrALAZINE HCL 20 MG/ML VL IV PRN (00:07)
[2017-07-26] MEDS: InsuLIN REG 1unit/0.01ml Soln (100units/ml) SC SCH ×2 (05:30→12:20)
[2017-07-26] MEDS: VANCOMYCIN HCL 125MG/5ML ORAL SOL PO SCH ×2 (05:30→12:20)
[2017-07-26] MEDS: ACCU-CHEK COMFORT CURVE STRIP VI SCH ×2 (05:30→12:20)
[2017-07-26 05:35] VITALS: BP 163/75
[2017-07-26 07:56] LABS: Basophils # (auto) 0.1 uL; Basophils % (auto) 1.6 % (0.0-2.0); Eosinophils # (auto) 0.5 uL; Eosinophils % (auto) 9.7 % (0.0-7.0); Hematocrit 30.5 % (41.0-53.0); Hemoglobin 10.2 g/dL (13.5-17.5); Lymphocytes # (auto) 1.2 uL; Lymphocytes % (auto) 21.5 % (10.0-50.0); Mean Corpuscular Hemoglobin 29.6 pg (28.0-32.0); Mean Corpuscular Hgb Conc. 33.5 g/dL (32.0-36.0); Mean Corpuscular Volume 88.3 fL (80.0-100.0); Monocytes # (auto) 0.6 uL; Monocytes % (auto) 11.4 % (0.0-12.0); Neutrophils # (auto) 3.1 uL; Neutrophils % (auto) 55.8 % (37.0-80.0); Nucleated Red Blood Cells % 0.1 %; Platelet Count (auto) 216 10^3/uL (140-450); Red Blood Cells 3.45 10^6/uL (4.5-5.90); Red Cell Distribution Width 15.1 % (11.8-14.3); White Blood Cell 5.6 10^3/uL (4.4-10.8)
[2017-07-26 08:14] LABS: BUN/Creatinine Ratio 1.7; Calcium 8.3 mg/dL (8.5-10.1); Magnesium 2.2 mg/dL (1.6-2.6); Phosphorus 3.1 mg/dL (2.5-4.90); Potassium 3.6 mmol/L (3.5-5.1)
[2017-07-26 08:20] VITALS: BP 163/75
[2017-07-26 09:00] VITALS: BP 187/85
[2017-07-26] MEDS ORDERED: SODIUM CHL 0.9% 1000 ML BAG XX ONE (09:00)
[2017-07-26] MEDS ORDERED: EPOETIN ALFA 2,000 UNIT/1 ML VIAL IV ONE (09:00)
[2017-07-26] MEDS: cefTRIAXone 1GM/10ml IVPUSH 10 ML IV SCH (10:00)
[2017-07-26] MEDS ORDERED: PANTOPRAZOLE 40 MG TAB PO SCH (10:00)
[2017-07-26] MEDS: CARVEDILOL 3.125 MG TAB PO SCH (12:20)
[2017-07-26 13:00] VITALS: BP 187/78
[2017-07-26] MEDS ORDERED: NIFEdipine ER 30 MG TAB PO ONE ×2 (14:00→14:55)
[2017-07-26] MEDS ORDERED: AMOXICILLIN/CLAVUL 875 MG TAB PO ONE (14:00)
[2017-07-26] MEDS: D5W/SOD CHL 0.45% 1,000 ML IV SCH (14:30)
[2017-07-26 15:44] VITALS: BP 154/78
[2017-07-26 17:00] VITALS: BP 154/82
== END 2017-07-26 17:08 | disposition home or self-care (01) | DRG 248 ==
LOC: ER 12:54 → OVERFLOW 12:55 → WEST WING 19:54
PROVIDERS: ADMIT Internal Medicine; ATTEND Internal Medicine
PROC: 5A1D70Z Performance of Urinary Filtration, Intermittent, Less than 6 Hours Per Day (ICD-10-PCS; 2017-07-22)
PROC: 5A1D70Z Performance of Urinary Filtration, Intermittent, Less than 6 Hours Per Day (ICD-10-PCS; 2017-07-24)
PROC: 0DB68ZX Excision of Stomach, Via Natural or Artificial Opening Endoscopic, Diagnostic (ICD-10-PCS; principal; 2017-07-25 16:15)
PROC: 0DBE8ZX Excision of Large Intestine, Via Natural or Artificial Opening Endoscopic, Diagnostic (ICD-10-PCS; 2017-07-25 16:15)
PROC: 5A1D70Z Performance of Urinary Filtration, Intermittent, Less than 6 Hours Per Day (ICD-10-PCS; 2017-07-26)
DX: A04.72 Enterocolitis due to Clostridium difficile, not specified as recurrent (principal); I50.33 Acute on chronic diastolic (congestive) heart failure; N18.6 End stage renal disease; E11.22 Type 2 diabetes mellitus with diabetic chronic kidney disease; Z99.2 Dependence on renal dialysis; E66.9 Obesity, unspecified; I13.2 Hypertensive heart and chronic kidney disease with heart failure and with stage 5 chronic kidney disease, or end stage renal disease; M10.9 Gout, unspecified; I25.10 Atherosclerotic heart disease of native coronary artery without angina pectoris; D63.1 Anemia in chronic kidney disease; E11.51 Type 2 diabetes mellitus with diabetic peripheral angiopathy without gangrene; E78.5 Hyperlipidemia, unspecified; K29.70 Gastritis, unspecified, without bleeding; K59.00 Constipation, unspecified; K21.9 Gastro-esophageal reflux disease without esophagitis; K29.80 Duodenitis without bleeding; K64.8 Other hemorrhoids; Z78.9 Other specified health status; Z79.02 Long term (current) use of antithrombotics/antiplatelets; Z79.82 Long term (current) use of aspirin; Z82.49 Family history of ischemic heart disease and other diseases of the circulatory system; Z83.3 Family history of diabetes mellitus; Z79.899 Other long term (current) drug therapy; Z68.33 Body mass index [BMI] 33.0-33.9, adult; Z95.5 Presence of coronary angioplasty implant and graft
CPT/HCPCS: 36415; 43239; 45380; 71046; 74176; 80048; 80053; 81001; 82150; 82962; 83036; 83690; 83735; 84100; 85025; 85610; 85730; 86850; 86900; 86901; 87045; 87081; 87493; 87899; 90935; 93005; 94761; 96374; 96375; C9113; J1642; J2250; J2270; J2405; J3490; Q4081

== ENCOUNTER 2017-08-16 18:43 | Inpatient (IN) | payer MEDICAID ==
[~2017-08-16] VITALS: Ht 167.6 cm; Wt 89.1 kg
[~2017-08-16 18:43] MED LIST changes: -ACET-6 PO; -CALC667T2 PO; -CHOL50006 PO; -DOC100C PO; -FER325T PO; -LEVO250T45 PO
[2017-08-16 20:44] LABS: Basophils # (auto) 0.1 uL; Basophils % (auto) 0.9 % (0.0-2.0); Eosinophils # (auto) 0.3 uL; Eosinophils % (auto) 3.3 % (0.0-7.0); Hematocrit 32.1 % (41.0-53.0); Hemoglobin 10.7 g/dL (13.5-17.5); Lymphocytes # (auto) 1.3 uL; Lymphocytes % (auto) 16.9 % (10.0-50.0); Mean Corpuscular Hemoglobin 29.8 pg (28.0-32.0); Mean Corpuscular Hgb Conc. 33.3 g/dL (32.0-36.0); Mean Corpuscular Volume 89.4 fL (80.0-100.0); Monocytes # (auto) 0.8 uL; Monocytes % (auto) 10.7 % (0.0-12.0); Neutrophils # (auto) 5.4 uL; Neutrophils % (auto) 68.2 % (37.0-80.0); Platelet Count (auto) 160 10^3/uL (140-450); Red Blood Cells 3.59 10^6/uL (4.5-5.90); Red Cell Distribution Width 16.7 % (11.8-14.3); White Blood Cell 7.9 10^3/uL (4.4-10.8)
[2017-08-16 20:54] LABS: Urine Bacteria NONE SEEN /hpf (None Seen); Urine Blood TRACE /uL (Negative); Urine Hyaline Cast FEW /lpf (0 - 2); Urine Specific Gravity 1.012 (1.001-1.035); Urine WBC 2 /hpf (0 - 3)
[2017-08-16 21:17] LABS: Alanine Aminotransferase 21 U/L (16-61); Alkaline Phosphatase 159 U/L (45-117); Anion Gap 9 (5-15); Aspartate Aminotransferase 17 U/L (15-37); BUN/Creatinine Ratio 2.6; Bilirubin, Total 0.7 mg/dL (0.2-1.0); Blood Urea Nitrogen 14 mg/dL (7-18); Calcium 8.5 mg/dL (8.5-10.1); Carbon Dioxide 28 mmol/L (21-32); Chloride 98 mmol/L (98-107); GFR African American 14 mL/min; GFR Non-African American 12 mL/min; Glucose 88 mg/dL (74-106); Magnesium 2.4 mg/dL (1.6-2.6); Potassium 4.6 mmol/L (3.5-5.1); Sodium 135 mmol/L (136-145); Total Protein 7.7 g/dL (6.4-8.2)
[2017-08-16] MEDS ORDERED: SODIUM CHLORIDE 0.9% 1,000 ML IVB ONE (22:33)
[2017-08-16] MEDS ORDERED: ACETAMINOPHEN 500 MG TAB PO ONE (22:45)
[2017-08-16] MEDS ORDERED: SODIUM CHLORIDE 0.9% 500 ML IV ONE (22:45)
[2017-08-16] MEDS ORDERED: ONDANSETRON HCL 4 MG/2 ML VIAL IV ONE (22:45)
[2017-08-16] MEDS ORDERED: cefTRIAXone 1GM/10ml IVPUSH 10 ML IV ONE ×2 (23:00→23:30)
[2017-08-16 23:06] LABS: INR 1.13 (0.9-1.15)
[2017-08-16] MEDS ORDERED: ACETAMINOPHEN 325 MG TAB PO PRN (23:30)
[2017-08-16] MEDS ORDERED: TEMAZEPAM 15 MG CAP PO PRN (23:30)
[2017-08-16] MEDS ORDERED: ALBUTEROL SULF 2.5 MG/0.5ML(0.5%) NEB SOLN NEB PRN (23:30)
[2017-08-16] MEDS ORDERED: metroNIDAZOLE 500MG/100ML 100 ML IV ONE (23:30)
[2017-08-17 01:25] VITALS: BP 134/91
[2017-08-17] MEDS: metroNIDAZOLE 500MG/100ML 100 ML IV SCH ×3 (06:20→21:43)
[2017-08-17] MEDS: glipiZIDE 5 MG TAB PO SCH ×2 (08:16→18:00)
[2017-08-17 09:00] LABS: Basophils # (auto) 0.1 uL; Basophils % (auto) 1.1 % (0.0-2.0); Eosinophils # (auto) 0.3 uL; Eosinophils % (auto) 4.3 % (0.0-7.0); Hematocrit 30.7 % (41.0-53.0); Lymphocytes # (auto) 1.5 uL; Lymphocytes % (auto) 24.4 % (10.0-50.0); Mean Corpuscular Hemoglobin 29.3 pg (28.0-32.0); Mean Corpuscular Hgb Conc. 32.7 g/dL (32.0-36.0); Mean Corpuscular Volume 89.8 fL (80.0-100.0); Monocytes # (auto) 0.7 uL; Monocytes % (auto) 11.8 % (0.0-12.0); Neutrophils # (auto) 3.6 uL; Neutrophils % (auto) 58.4 % (37.0-80.0); Platelet Count (auto) 137 10^3/uL (140-450); Red Blood Cells 3.42 10^6/uL (4.5-5.90); Red Cell Distribution Width 17.1 % (11.8-14.3); White Blood Cell 6.1 10^3/uL (4.4-10.8)
[2017-08-17] MEDS: ONDANSETRON HCL 4 MG/2 ML VIAL IV PRN (09:05)
[2017-08-17 09:18] LABS: Albumin 3.6 g/dL (3.4-5.0); BUN/Creatinine Ratio 2.4; Bilirubin, Total 0.5 mg/dL (0.2-1.0); Calcium 8.2 mg/dL (8.5-10.1); Potassium 4.5 mmol/L (3.5-5.1)
[2017-08-17] MEDS ORDERED: PANTOPRAZOLE 40 MG/10 ML VIAL IV SCH (10:00)
[2017-08-17] MEDS: ASPirin 81 mg TAB PO SCH (10:18)
[2017-08-17] MEDS: CLOPIDOGREL BISULFATE 75 MG TAB PO SCH (10:18)
[2017-08-17] MEDS: CARVEDILOL 3.125 MG TAB PO SCH ×2 (10:18→21:44)
[2017-08-17] MEDS: NIFEdipine ER 30 MG TAB PO SCH (10:19)
[2017-08-17] MEDS: ALLOPURINOL 100 MG TAB PO SCH (10:19)
[2017-08-17] MEDS: ENALAPRIL MALEATE 10 MG TAB PO SCH ×2 (10:19→21:44)
[2017-08-17] MEDS ORDERED: DEXTROSE 50% SYRINGE 50 ML IV ONE (15:49)
[2017-08-17] MEDS ORDERED: DEXTROSE (50%) 50ML SYRG IV ONE (16:00)
[2017-08-17] MEDS ORDERED: DEXTROSE (50%) 50ML SYRG IV PRN (16:30)
[2017-08-17] MEDS: InsuLIN REG 1unit/0.01ml Soln (100units/ml) SC SCH ×2 (17:00→22:00)
[2017-08-17] MEDS: ACCU-CHEK COMFORT CURVE STRIP VI SCH ×2 (17:05→22:23)
[2017-08-17 17:50] VITALS: BP 130/60
[2017-08-17] MEDS: VANCOMYCIN HCL 125MG/5ML ORAL SOL PO SCH ×2 (18:56→21:45)
[2017-08-17] MEDS: ATORVASTATIN 20 MG TAB PO SCH (21:43)
[2017-08-17 22:00] VITALS: BP 137/68
[2017-08-17] MEDS ORDERED: cefTRIAXone 1GM/10ml IVPUSH 10 ML IV SCH (22:00)
[2017-08-18 05:00] VITALS: BP 100/59
[2017-08-18] MEDS: metroNIDAZOLE 500MG/100ML 100 ML IV SCH ×3 (05:36→21:07)
[2017-08-18] MEDS: VANCOMYCIN HCL 125MG/5ML ORAL SOL PO SCH ×4 (05:36→21:08)
[2017-08-18] MEDS: ACCU-CHEK COMFORT CURVE STRIP VI SCH ×4 (06:18→21:22)
[2017-08-18] MEDS: InsuLIN REG 1unit/0.01ml Soln (100units/ml) SC SCH ×4 (06:18→21:22)
[2017-08-18] MEDS: glipiZIDE 5 MG TAB PO SCH (06:19)
[2017-08-18 07:27] LABS: Basophils # (auto) 0 uL; Basophils % (auto) 1.2 % (0.0-2.0); Hemoglobin 8.2 g/dL (13.5-17.5); Monocytes # (auto) 0.6 uL; Neutrophils # (auto) 1.5 uL; White Blood Cell 3.6 10^3/uL (4.4-10.8)
[2017-08-18 07:29] LABS: Eosinophils # (auto) 0.5 uL; Eosinophils % (auto) 12.8 % (0.0-7.0); Hematocrit 24.4 % (41.0-53.0); Lymphocytes % (auto) 27.6 % (10.0-50.0); Mean Corpuscular Hemoglobin 30.1 pg (28.0-32.0); Mean Corpuscular Hgb Conc. 33.4 g/dL (32.0-36.0); Mean Corpuscular Volume 90.1 fL (80.0-100.0); Monocytes % (auto) 15.9 % (0.0-12.0); Neutrophils % (auto) 42.5 % (37.0-80.0); Nucleated Red Blood Cells % 0.1 %; Platelet Count (auto) 113 10^3/uL (140-450); Red Blood Cells 2.71 10^6/uL (4.5-5.90); Red Cell Distribution Width 16.2 % (11.8-14.3)
[2017-08-18 07:50] LABS: BUN/Creatinine Ratio 2.7; Calcium 7.5 mg/dL (8.5-10.1); Magnesium 2.2 mg/dL (1.6-2.6); Potassium 4.3 mmol/L (3.5-5.1)
[2017-08-18 08:00] VITALS: BP 138/67
[2017-08-18] MEDS: CLOPIDOGREL BISULFATE 75 MG TAB PO SCH (09:12)
[2017-08-18] MEDS: ALLOPURINOL 100 MG TAB PO SCH (09:13)
[2017-08-18] MEDS: ASPirin 81 mg TAB PO SCH (09:13)
[2017-08-18] MEDS: NIFEdipine ER 30 MG TAB PO SCH (10:00)
[2017-08-18] MEDS: ENALAPRIL MALEATE 10 MG TAB PO SCH ×2 (10:00→21:07)
[2017-08-18] MEDS: CARVEDILOL 3.125 MG TAB PO SCH ×2 (10:00→21:07)
[2017-08-18] MEDS ORDERED: D5W 5% 1,000 ML IV SCH (11:30)
[2017-08-18 12:00] VITALS: BP 117/90
[2017-08-18] MEDS ORDERED: EPOETIN ALFA 10,000 UNIT/1 ML VIAL IV ONE (12:00)
[2017-08-18 15:00] VITALS: BP 150/72
[2017-08-18] MEDS: ONDANSETRON HCL 4 MG/2 ML VIAL IV PRN (20:09)
[2017-08-18] MEDS: ATORVASTATIN 20 MG TAB PO SCH (21:07)
[2017-08-18 22:29] VITALS: BP 178/89
[2017-08-18] MEDS: CHOLESTYRAMINE 4 GM POWDER PO SCH (22:59)
[2017-08-18 23:43] VITALS: BP 170/78
[2017-08-19] VITALS (13 sets, daily range): BP systolic 108–190; BP diastolic 62–90
[2017-08-19] MEDS ORDERED: cloNIDine HCL 0.1 MG TAB PO ONE (04:45)
[2017-08-19] MEDS: metroNIDAZOLE 500MG/100ML 100 ML IV SCH ×3 (04:58→21:38)
[2017-08-19] MEDS: VANCOMYCIN HCL 125MG/5ML ORAL SOL PO SCH ×4 (04:58→22:00)
[2017-08-19] MEDS: InsuLIN REG 1unit/0.01ml Soln (100units/ml) SC SCH ×4 (06:29→22:00)
[2017-08-19] MEDS: ACCU-CHEK COMFORT CURVE STRIP VI SCH ×4 (06:29→22:00)
[2017-08-19 07:29] LABS: Basophils # (auto) 0 uL; Eosinophils # (auto) 0.3 uL; Lymphocytes # (auto) 0.9 uL; Monocytes # (auto) 0.5 uL; Neutrophils # (auto) 1.4 uL; Red Cell Distribution Width 16.2 % (11.8-14.3); White Blood Cell 3.1 10^3/uL (4.4-10.8)
[2017-08-19 07:32] LABS: Basophils % (auto) 0.6 % (0.0-2.0); Eosinophils % (auto) 10.5 % (0.0-7.0); Hematocrit 21.3 % (41.0-53.0); Hemoglobin 7.1 g/dL (13.5-17.5); Lymphocytes % (auto) 30.2 % (10.0-50.0); Mean Corpuscular Hemoglobin 30.2 pg (28.0-32.0); Mean Corpuscular Hgb Conc. 33.4 g/dL (32.0-36.0); Mean Corpuscular Volume 90.2 fL (80.0-100.0); Monocytes % (auto) 15.3 % (0.0-12.0); Neutrophils % (auto) 43.4 % (37.0-80.0); Platelet Count (auto) 104 10^3/uL (140-450); Red Blood Cells 2.36 10^6/uL (4.5-5.90)
[2017-08-19 07:44] LABS: BUN/Creatinine Ratio 2.4; Calcium 6.3 mg/dL (8.5-10.1); Potassium 3.7 mmol/L (3.5-5.1)
[2017-08-19] MEDS: CARVEDILOL 3.125 MG TAB PO SCH ×2 (09:10→21:39)
[2017-08-19] MEDS: NIFEdipine ER 30 MG TAB PO SCH (09:10)
[2017-08-19] MEDS: ALLOPURINOL 100 MG TAB PO SCH (09:11)
[2017-08-19] MEDS: ASPirin 81 mg TAB PO SCH (09:11)
[2017-08-19] MEDS: CLOPIDOGREL BISULFATE 75 MG TAB PO SCH (09:11)
[2017-08-19] MEDS: ENALAPRIL MALEATE 10 MG TAB PO SCH ×2 (09:11→21:39)
[2017-08-19] MEDS ORDERED: cloNIDine HCL 0.1 MG TAB PO PRN (11:45)
[2017-08-19] MEDS: CHOLESTYRAMINE 4 GM POWDER PO SCH ×2 (12:02→23:24)
[2017-08-19] MEDS: ATORVASTATIN 20 MG TAB PO SCH (21:38)
[2017-08-19] MEDS: HYDROcodone-ACET 5/325MG TAB PO PRN (23:56)
[2017-08-20 05:00] VITALS: BP 129/74
[2017-08-20] MEDS: metroNIDAZOLE 500MG/100ML 100 ML IV SCH ×2 (06:04→14:00)
[2017-08-20] MEDS: VANCOMYCIN HCL 125MG/5ML ORAL SOL PO SCH ×3 (06:04→18:00)
[2017-08-20] MEDS: ACCU-CHEK COMFORT CURVE STRIP VI SCH ×3 (06:14→17:00)
[2017-08-20] MEDS: InsuLIN REG 1unit/0.01ml Soln (100units/ml) SC SCH ×3 (06:14→17:00)
[2017-08-20 06:42] LABS: Basophils # (auto) 0.1 uL; Eosinophils # (auto) 0.4 uL; Eosinophils % (auto) 12.9 % (0.0-7.0); Hematocrit 28.8 % (41.0-53.0); Hemoglobin 9.7 g/dL (13.5-17.5); Lymphocytes # (auto) 1.1 uL; Lymphocytes % (auto) 32.3 % (10.0-50.0); Mean Corpuscular Hemoglobin 29.9 pg (28.0-32.0); Mean Corpuscular Hgb Conc. 33.8 g/dL (32.0-36.0); Mean Corpuscular Volume 88.5 fL (80.0-100.0); Monocytes # (auto) 0.5 uL; Monocytes % (auto) 16.1 % (0.0-12.0); Neutrophils # (auto) 1.2 uL; Neutrophils % (auto) 36.7 % (37.0-80.0); Nucleated Red Blood Cells % 0.1 %; Platelet Count (auto) 140 10^3/uL (140-450); Red Blood Cells 3.26 10^6/uL (4.5-5.90); Red Cell Distribution Width 17.3 % (11.8-14.3); White Blood Cell 3.4 10^3/uL (4.4-10.8)
[2017-08-20 07:03] LABS: BUN/Creatinine Ratio 2.6; Calcium 7.3 mg/dL (8.5-10.1); Magnesium 2.2 mg/dL (1.6-2.6); Potassium 4.5 mmol/L (3.5-5.1)
[2017-08-20 07:07] LABS: % Iron Saturation 44.4 % (20-55)
[2017-08-20 08:00] VITALS: BP 125/67
[2017-08-20 08:20] VITALS: BP 129/74
[2017-08-20 09:26] LABS: Folate (Folic Acid) 3.8 ng/mL (5.38-24)
[2017-08-20] MEDS: CLOPIDOGREL BISULFATE 75 MG TAB PO SCH (10:45)
[2017-08-20] MEDS: CARVEDILOL 3.125 MG TAB PO SCH (10:45)
[2017-08-20] MEDS: ALLOPURINOL 100 MG TAB PO SCH (10:46)
[2017-08-20] MEDS: ENALAPRIL MALEATE 10 MG TAB PO SCH (10:46)
[2017-08-20] MEDS: HYDROcodone-ACET 5/325MG TAB PO PRN (10:47)
[2017-08-20] MEDS: ASPirin 81 mg TAB PO SCH (10:47)
[2017-08-20] MEDS: NIFEdipine ER 30 MG TAB PO SCH (10:48)
[2017-08-20] MEDS: CHOLESTYRAMINE 4 GM POWDER PO SCH (10:50)
[2017-08-20 11:41] VITALS: BP 149/75
[2017-08-20] MEDS ORDERED: EPOETIN ALFA 10,000 UNIT/1 ML VIAL IV ONE (11:45)
== END 2017-08-20 18:00 | disposition home or self-care (01) | DRG 248 ==
LOC: ER 18:46 → TELE 18:47 → TELE-EAST 08-17 17:45 → EAST 08-17 18:32
PROVIDERS: ADMIT Nurse Practitioner; ATTEND Internal Medicine
PROC: 5A1D70Z Performance of Urinary Filtration, Intermittent, Less than 6 Hours Per Day (ICD-10-PCS; principal; 2017-08-18)
PROC: 30233N1 Transfusion of Nonautologous Red Blood Cells into Peripheral Vein, Percutaneous Approach (ICD-10-PCS; 2017-08-19)
PROC: 5A1D70Z Performance of Urinary Filtration, Intermittent, Less than 6 Hours Per Day (ICD-10-PCS; 2017-08-20)
DX: A04.71 Enterocolitis due to Clostridium difficile, recurrent (principal); I13.2 Hypertensive heart and chronic kidney disease with heart failure and with stage 5 chronic kidney disease, or end stage renal disease; D61.818 Other pancytopenia; N18.6 End stage renal disease; E11.22 Type 2 diabetes mellitus with diabetic chronic kidney disease; E11.649 Type 2 diabetes mellitus with hypoglycemia without coma; I50.9 Heart failure, unspecified; D63.8 Anemia in other chronic diseases classified elsewhere; Z99.2 Dependence on renal dialysis; N30.00 Acute cystitis without hematuria; E78.5 Hyperlipidemia, unspecified; R58 Hemorrhage, not elsewhere classified; M10.9 Gout, unspecified; R59.0 Localized enlarged lymph nodes; I25.10 Atherosclerotic heart disease of native coronary artery without angina pectoris; G47.00 Insomnia, unspecified; N32.89 Other specified disorders of bladder; D63.1 Anemia in chronic kidney disease; K21.9 Gastro-esophageal reflux disease without esophagitis; Z82.49 Family history of ischemic heart disease and other diseases of the circulatory system; Z83.3 Family history of diabetes mellitus; Z86.19 Personal history of other infectious and parasitic diseases; Z79.899 Other long term (current) drug therapy
CPT/HCPCS: 36415; 71045; 74176; 80048; 80053; 81001; 82270; 82607; 82746; 82962; 83540; 83550; 83605; 83735; 84484; 85025; 85610; 85730; 86850; 86900; 86901; 86920; 87040; 87045; 87493; 87899; 90935; 93005; 94640; 94761; 96361; 96365; 96375; C9113; J0885; J2405; J3490; J7060

== ENCOUNTER 2017-10-24 17:06 | Inpatient (IN) | payer MEDICAID ==
[~2017-10-24] VITALS: Ht 170.2 cm; Wt 87.9 kg
[~2017-10-24 17:06] MED LIST changes: -ALL100T PO; +ATOR20TA50 PO; -GLIP-116; -SIMV-8 PO; +TRAZ100T2 PO
[2017-10-24 18:35] LABS: Basophils # (auto) 0.1 uL; Basophils % (auto) 2.3 % (0.0-2.0); Eosinophils # (auto) 0.4 uL; Eosinophils % (auto) 9.4 % (0.0-7.0); Hematocrit 31.9 % (41.0-53.0); Hemoglobin 10.7 g/dL (13.5-17.5); Lymphocytes # (auto) 1.3 uL; Lymphocytes % (auto) 33.7 % (10.0-50.0); Mean Corpuscular Hemoglobin 30.3 pg (28.0-32.0); Mean Corpuscular Hgb Conc. 33.5 g/dL (32.0-36.0); Mean Corpuscular Volume 90.4 fL (80.0-100.0); Monocytes # (auto) 0.4 uL; Monocytes % (auto) 10.6 % (0.0-12.0); Neutrophils # (auto) 1.7 uL; Nucleated Red Blood Cells % 0.1 %; Platelet Count (auto) 169 10^3/uL (140-450); Red Blood Cells 3.53 10^6/uL (4.5-5.90); Red Cell Distribution Width 18.9 % (11.8-14.3); White Blood Cell 3.9 10^3/uL (4.4-10.8)
[2017-10-24 18:54] LABS: INR 1.27 (0.9-1.15); Partial Thromboplastin Time 32.1 sec (23.78-33.04); Prothrombin Time 13.4 sec (9.27-12.13)
[2017-10-24 18:58] LABS: Alanine Aminotransferase 12 U/L (16-61); Albumin 3.6 g/dL (3.4-5.0); Alkaline Phosphatase 287 U/L (45-117); Anion Gap 13 (5-15); Aspartate Aminotransferase 14 U/L (15-37); BUN/Creatinine Ratio 2.7; Bilirubin, Total 0.8 mg/dL (0.2-1.0); Blood Urea Nitrogen 23 mg/dL (7-18); Calcium 8.3 mg/dL (8.5-10.1); Carbon Dioxide 27 mmol/L (21-32); Chloride 94 mmol/L (98-107); GFR African American 8 mL/min; GFR Non-African American 7 mL/min; Glucose 81 mg/dL (74-106); Magnesium 2.8 mg/dL (1.6-2.6); Potassium 4.6 mmol/L (3.5-5.1); Sodium 134 mmol/L (136-145); Total Protein 6.8 g/dL (6.4-8.2)
[2017-10-24] MEDS ORDERED: ALBUTEROL SULF 2.5 MG/0.5ML(0.5%) NEB SOLN NEB ONE (20:30)
[2017-10-24] MEDS ORDERED: IPRATROPIUM BROM 0.5 MG/2.5ML INH SOL NEB ONE (20:30)
[2017-10-25] VITALS (8 sets, daily range): BP systolic 137–154; BP diastolic 68–87
[2017-10-25] MEDS ORDERED: DEXTROSE (50%) 50ML SYRG IV PRN (03:15)
[2017-10-25] MEDS ORDERED: ACETAMINOPHEN 500 MG TAB PO PRN (03:15)
[2017-10-25] MEDS ORDERED: HYDROcodone-ACET 5/325MG TAB PO PRN (03:15)
[2017-10-25] MEDS ORDERED: ONDANSETRON HCL 4 MG/2 ML VIAL IV PRN (03:15)
[2017-10-25 03:19] LABS: Urine Bacteria FEW /hpf (None Seen); Urine Blood Negative /uL (Negative); Urine Hyaline Cast FEW /lpf (0 - 2); Urine Mucus FEW (None Seen); Urine Specific Gravity 1.011 (1.001-1.035); Urine WBC 28 /hpf (0 - 3)
[2017-10-25 03:27] LABS: Alcohol, Urine < 3.0 mg/dL (0-5); Amphetamine Screen, Urine NEGATIVE (NEGATIVE); Barbiturate Scree,Urine NEGATIVE (NEGATIVE); Benzodiazephine Screen, Urine NEGATIVE (NEGATIVE); Cannabinoid Screen, Urine NEGATIVE (NEGATIVE); Cocaine Screen, Urine NEGATIVE (NEGATIVE); Opiate Scree,Urine NEGATIVE (NEGATIVE); Phencyclidine Screen, Urine NEGATIVE (NEGATIVE)
[2017-10-25] MEDS: IPRATROPIUM BROM 0.5 MG/2.5ML INH SOL NEB SCH ×2 (05:36→12:00)
[2017-10-25] MEDS: ALBUTEROL SULF 2.5 MG/0.5ML(0.5%) NEB SOLN NEB SCH ×2 (05:36→12:00)
[2017-10-25] MEDS: InsuLIN REG 1unit/0.01ml Soln (100units/ml) SC SCH ×3 (07:00→17:00)
[2017-10-25] MEDS: ACCU-CHEK COMFORT CURVE STRIP VI SCH ×3 (07:03→17:16)
[2017-10-25] MEDS ORDERED: PANTOPRAZOLE 40 MG TAB PO SCH (10:00)
[2017-10-25] MEDS ORDERED: ASPirin-EC 81 mg tab PO SCH (10:00)
[2017-10-25] MEDS ORDERED: CARVEDILOL 3.125 MG TAB PO SCH (10:00)
[2017-10-25] MEDS ORDERED: EPOETIN ALFA 10,000 UNIT/1 ML VIAL IV ONE (10:00)
[2017-10-25] MEDS ORDERED: GABAPENTIN 300 MG CAP PO SCH (10:00)
[2017-10-25] MEDS ORDERED: ENALAPRIL MALEATE 10 MG TAB PO SCH (10:00)
[2017-10-25] MEDS ORDERED: B-COMPLEX W/ C & FOLIC ACID(NEPHROVITE TAB) PO SCH (10:00)
[2017-10-25] MEDS ORDERED: traZODone HCL 50 MG TAB PO SCH (22:00)
[2017-10-25] MEDS ORDERED: ATORVASTATIN 20 MG TAB PO SCH (22:00)
== END 2017-10-25 18:00 | disposition home or self-care (01) | DRG 194 ==
LOC: ER 17:14 → TELE 17:15 → TELE-CENTR 10-25 04:15
PROVIDERS: ADMIT Nurse Practitioner Family; ATTEND Nurse Practitioner Family
PROC: 5A1D70Z Performance of Urinary Filtration, Intermittent, Less than 6 Hours Per Day (ICD-10-PCS; principal; 2017-10-25)
DX: I13.2 Hypertensive heart and chronic kidney disease with heart failure and with stage 5 chronic kidney disease, or end stage renal disease (principal); J90 Pleural effusion, not elsewhere classified; E11.22 Type 2 diabetes mellitus with diabetic chronic kidney disease; I31.3 Pericardial effusion (noninflammatory); N18.6 End stage renal disease; R18.8 Other ascites; E66.01 Morbid (severe) obesity due to excess calories; I24.9 Acute ischemic heart disease, unspecified; D63.1 Anemia in chronic kidney disease; E78.5 Hyperlipidemia, unspecified; F10.129 Alcohol abuse with intoxication, unspecified; I25.10 Atherosclerotic heart disease of native coronary artery without angina pectoris; I50.9 Heart failure, unspecified; K21.9 Gastro-esophageal reflux disease without esophagitis; M10.9 Gout, unspecified; N39.0 Urinary tract infection, site not specified; Z82.49 Family history of ischemic heart disease and other diseases of the circulatory system; Z99.2 Dependence on renal dialysis; Z83.3 Family history of diabetes mellitus; Z68.30 Body mass index [BMI] 30.0-30.9, adult
CPT/HCPCS: 36415; 71250; 74176; 80053; 80307; 80320; 81001; 82962; 83735; 83880; 84484; 85025; 85610; 85730; 87081; 90935; 93005; 94640; 99291; J0885; J2405

== ENCOUNTER 2017-11-06 23:18 | Inpatient (IN) | payer MEDICAID ==
[~2017-11-06] VITALS: Ht 167.6 cm; Wt 95.5 kg
[~2017-11-06 23:18] MED LIST changes: -[UNRECOGNIZED DRUG - CODE] PO
[2017-11-07 00:16] LABS: Basophils # (auto) 0.1 uL; Basophils % (auto) 1.1 % (0.0-2.0); Eosinophils # (auto) 0.2 uL; Hematocrit 33.2 % (41.0-53.0); Hemoglobin 11.3 g/dL (13.5-17.5); Lymphocytes # (auto) 1.5 uL; Lymphocytes % (auto) 29.8 % (10.0-50.0); Mean Corpuscular Hemoglobin 30.7 pg (28.0-32.0); Mean Corpuscular Hgb Conc. 33.9 g/dL (32.0-36.0); Mean Corpuscular Volume 90.4 fL (80.0-100.0); Monocytes # (auto) 0.5 uL; Monocytes % (auto) 9.9 % (0.0-12.0); Neutrophils # (auto) 2.7 uL; Neutrophils % (auto) 55.2 % (37.0-80.0); Nucleated Red Blood Cells % 0.1 %; Platelet Count (auto) 123 10^3/uL (140-450); Red Blood Cells 3.67 10^6/uL (4.5-5.90); Red Cell Distribution Width 19.1 % (11.8-14.3); White Blood Cell 4.9 10^3/uL (4.4-10.8)
[2017-11-07 00:35] LABS: Albumin 3.4 g/dL (3.4-5.0); Calcium 8.1 mg/dL (8.5-10.1); Magnesium 2.1 mg/dL (1.6-2.6); Potassium 3.6 mmol/L (3.5-5.1)
[2017-11-07 00:36] LABS: BUN/Creatinine Ratio 2.1
[2017-11-07 00:42] LABS: Total Protein 6.8 g/dL (6.4-8.2)
[2017-11-07 03:58] LABS: INR 1.2 (0.9-1.15); Partial Thromboplastin Time 33.7 sec (23.78-33.04); Prothrombin Time 12.7 sec (9.27-12.13)
[2017-11-07] MEDS: InsuLIN REG 1unit/0.01ml Soln (100units/ml) SC SCH ×3 (06:00→18:00)
[2017-11-07] MEDS ORDERED: ONDANSETRON HCL 4 MG/2 ML VIAL IV PRN (06:00)
[2017-11-07] MEDS ORDERED: DEXTROSE (50%) 50ML SYRG IV PRN (06:00)
[2017-11-07] MEDS ORDERED: ALBUTEROL SULF 2.5 MG/0.5ML(0.5%) NEB SOLN NEB PRN (06:00)
[2017-11-07 06:19] LABS: Urine Bacteria NONE SEEN /hpf (None Seen); Urine Blood 3+ /uL (Negative); Urine Specific Gravity 1.013 (1.001-1.035); Urine WBC 59 /hpf (0 - 3)
[2017-11-07] MEDS: ACCU-CHEK COMFORT CURVE STRIP VI SCH ×3 (06:24→12:49)
[2017-11-07 07:27] LABS: Hematocrit 35.4 % (41.0-53.0); Hemoglobin 11.6 g/dL (13.5-17.5)
[2017-11-07] MEDS: cefTRIAXone 1GM/10ml IVPUSH 10 ML IV SCH (09:58)
[2017-11-07] MEDS: NIFEdipine ER 30 MG TAB PO SCH (09:58)
[2017-11-07] MEDS: CARVEDILOL 3.125 MG TAB PO SCH ×2 (10:00→22:08)
[2017-11-07] MEDS: ENALAPRIL MALEATE 10 MG TAB PO SCH ×2 (10:00→22:08)
[2017-11-07] MEDS: FAMOTIDINE 20 MG TAB PO SCH (10:00)
[2017-11-07 16:00] VITALS: BP 121/70
[2017-11-07] MEDS ORDERED: BELLADONNA ALKAL/OPIUM (16.2/30MG) RECT SUPP PR ONE (16:45)
[2017-11-07 17:02] VITALS: BP 145/81
[2017-11-07] MEDS ORDERED: VANC250PO PO (17:15)
[2017-11-07] MEDS ORDERED: GLIP-115 PO (17:15)
[2017-11-07] MEDS: HYDROcodone-ACET 5/325MG TAB PO PRN (20:09)
[2017-11-07 21:41] VITALS: BP 145/81
[2017-11-07 22:00] VITALS: BP 126/68
[2017-11-07] MEDS: ATORVASTATIN 20 MG TAB PO SCH (22:08)
[2017-11-08] MEDS: ACCU-CHEK COMFORT CURVE STRIP VI SCH ×5 (00:03→23:59)
[2017-11-08 05:00] VITALS: BP 130/73
[2017-11-08] MEDS: InsuLIN REG 1unit/0.01ml Soln (100units/ml) SC SCH ×5 (05:00→23:59)
[2017-11-08 09:00] VITALS: BP 119/70
[2017-11-08] MEDS: CARVEDILOL 3.125 MG TAB PO SCH ×2 (09:57→22:13)
[2017-11-08] MEDS: FAMOTIDINE 20 MG TAB PO SCH (09:58)
[2017-11-08] MEDS: OXYBUTYNIN CHL 5 MG TAB PO SCH ×2 (09:58→22:13)
[2017-11-08] MEDS: ENALAPRIL MALEATE 10 MG TAB PO SCH ×2 (09:58→22:14)
[2017-11-08] MEDS: NIFEdipine ER 30 MG TAB PO SCH (09:59)
[2017-11-08] MEDS: cefTRIAXone 1GM/10ml IVPUSH 10 ML IV SCH (10:00)
[2017-11-08 11:45] LABS: Basophils # (auto) 0.1 uL; Basophils % (auto) 1.1 % (0.0-2.0); Eosinophils # (auto) 0.4 uL; Eosinophils % (auto) 7.4 % (0.0-7.0); Hemoglobin 10.5 g/dL (13.5-17.5); Lymphocytes # (auto) 1.2 uL; Mean Corpuscular Hemoglobin 29.6 pg (28.0-32.0); Mean Corpuscular Hgb Conc. 32.8 g/dL (32.0-36.0); Mean Corpuscular Volume 90.2 fL (80.0-100.0); Monocytes # (auto) 0.5 uL; Monocytes % (auto) 9.7 % (0.0-12.0); Neutrophils # (auto) 3.3 uL; Neutrophils % (auto) 59.8 % (37.0-80.0); Platelet Count (auto) 108 10^3/uL (140-450); Red Blood Cells 3.55 10^6/uL (4.5-5.90); Red Cell Distribution Width 18.7 % (11.8-14.3); White Blood Cell 5.5 10^3/uL (4.4-10.8)
[2017-11-08 12:16] LABS: Albumin 3.3 g/dL (3.4-5.0); Bilirubin, Total 0.9 mg/dL (0.2-1.0); Calcium 7.8 mg/dL (8.5-10.1); Potassium 3.5 mmol/L (3.5-5.1); Total Protein 6.6 g/dL (6.4-8.2)
[2017-11-08 13:00] VITALS: BP 123/72
[2017-11-08 17:00] VITALS: BP 113/71
[2017-11-08 22:00] VITALS: BP 119/70
[2017-11-08] MEDS: ATORVASTATIN 20 MG TAB PO SCH (22:12)
[2017-11-08] MEDS: TEMAZEPAM 15 MG CAP PO PRN (22:12)
[2017-11-08] MEDS: HYDROcodone-ACET 5/325MG TAB PO PRN (23:59)
[2017-11-09 05:00] VITALS: BP 104/56
[2017-11-09] MEDS: InsuLIN REG 1unit/0.01ml Soln (100units/ml) SC SCH ×4 (05:37→23:41)
[2017-11-09] MEDS: ACCU-CHEK COMFORT CURVE STRIP VI SCH ×4 (05:37→23:41)
[2017-11-09] MEDS: ACETAMINOPHEN 325 MG TAB PO PRN ×2 (05:37→20:50)
[2017-11-09 09:00] VITALS: BP 93/58
[2017-11-09] MEDS: cefTRIAXone 1GM/10ml IVPUSH 10 ML IV SCH (09:55)
[2017-11-09] MEDS: FAMOTIDINE 20 MG TAB PO SCH (09:58)
[2017-11-09] MEDS: OXYBUTYNIN CHL 5 MG TAB PO SCH ×2 (09:58→21:53)
[2017-11-09] MEDS: NIFEdipine ER 30 MG TAB PO SCH (09:58)
[2017-11-09] MEDS: CARVEDILOL 3.125 MG TAB PO SCH ×2 (09:58→21:54)
[2017-11-09] MEDS: ENALAPRIL MALEATE 10 MG TAB PO SCH ×2 (09:58→21:59)
[2017-11-09] MEDS: HYDROcodone-ACET 5/325MG TAB PO PRN (10:10)
[2017-11-09] MEDS ORDERED: VANCOMYCIN PER PHARMACY 0 MG IV SCH (11:00)
[2017-11-09] MEDS ORDERED: VANCOMYCIN 1,250 MG in D5W 5% 250 ML IV ONE (12:15)
[2017-11-09 13:00] VITALS: BP 96/60
[2017-11-09 17:00] VITALS: BP 93/59
[2017-11-09 21:42] VITALS: BP 98/59
[2017-11-09] MEDS: ATORVASTATIN 20 MG TAB PO SCH (21:53)
[2017-11-09] MEDS: TEMAZEPAM 15 MG CAP PO PRN (21:54)
[2017-11-10] VITALS (8 sets, daily range): BP systolic 99–125; BP diastolic 55–74
[2017-11-10] MEDS: HYDROcodone-ACET 5/325MG TAB PO PRN ×2 (02:22→23:39)
[2017-11-10] MEDS ORDERED: EPOETIN ALFA 10,000 UNIT/1 ML VIAL IV ONE ×2 (04:00→19:00)
[2017-11-10] MEDS ORDERED: SODIUM CHL 0.9% 1000 ML BAG XX ONE (04:00)
[2017-11-10] MEDS: ACCU-CHEK COMFORT CURVE STRIP VI SCH ×4 (05:48→23:45)
[2017-11-10] MEDS: InsuLIN REG 1unit/0.01ml Soln (100units/ml) SC SCH ×3 (05:48→17:45)
[2017-11-10 07:12] LABS: Basophils # (auto) 0.1 uL; Basophils % (auto) 1.1 % (0.0-2.0); Eosinophils # (auto) 0.4 uL; Eosinophils % (auto) 7.3 % (0.0-7.0); Hematocrit 30.9 % (41.0-53.0); Hemoglobin 10.7 g/dL (13.5-17.5); Lymphocytes % (auto) 21.4 % (10.0-50.0); Mean Corpuscular Hgb Conc. 34.7 g/dL (32.0-36.0); Mean Corpuscular Volume 89.5 fL (80.0-100.0); Monocytes # (auto) 0.5 uL; Monocytes % (auto) 11.2 % (0.0-12.0); Neutrophils # (auto) 2.9 uL; Nucleated Red Blood Cells % 0.1 %; Platelet Count (auto) 115 10^3/uL (140-450); Red Blood Cells 3.46 10^6/uL (4.5-5.90); Red Cell Distribution Width 17.9 % (11.8-14.3); White Blood Cell 4.8 10^3/uL (4.4-10.8)
[2017-11-10 07:20] LABS: Albumin 3.2 g/dL (3.4-5.0); BUN/Creatinine Ratio 2.8; Bilirubin, Total 0.8 mg/dL (0.2-1.0); Potassium 4.3 mmol/L (3.5-5.1); Total Protein 6.3 g/dL (6.4-8.2)
[2017-11-10] MEDS: FAMOTIDINE 20 MG TAB PO SCH (09:29)
[2017-11-10] MEDS: cefTRIAXone 1GM/10ml IVPUSH 10 ML IV SCH (09:36)
[2017-11-10] MEDS: OXYBUTYNIN CHL 5 MG TAB PO SCH (09:36)
[2017-11-10] MEDS: CARVEDILOL 3.125 MG TAB PO SCH ×2 (09:36→23:32)
[2017-11-10] MEDS: ENALAPRIL MALEATE 10 MG TAB PO SCH (09:37)
[2017-11-10] MEDS: NIFEdipine ER 30 MG TAB PO SCH (09:37)
[2017-11-10] MEDS: LACTULOSE 20Gm/30ML SOLN PO SCH ×2 (13:24→23:32)
[2017-11-10] MEDS ORDERED: VANCOMYCIN 1GM/250ML 250 ML IV ONE (16:00)
[2017-11-10] MEDS: HALOPERIDOL LACTATE 5 MG/ML INJ VIAL IM PRN (18:51)
[2017-11-10] MEDS ORDERED: GABAPENTIN 300 MG CAP PO ONE (22:15)
[2017-11-10] MEDS: ATORVASTATIN 20 MG TAB PO SCH (23:33)
[2017-11-11] MEDS: InsuLIN REG 1unit/0.01ml Soln (100units/ml) SC SCH
[2017-11-11] MEDS: ACCU-CHEK COMFORT CURVE STRIP VI SCH ×8 (01:39→16:03)
[2017-11-11] MEDS: ACETAMINOPHEN 325 MG TAB PO PRN (04:44)
[2017-11-11 05:05] VITALS: BP 137/54
[2017-11-11] MEDS: LACTULOSE 20Gm/30ML SOLN PO SCH ×2 (06:18→14:50)
[2017-11-11 06:58] LABS: Basophils # (auto) 0.1 uL; Basophils % (auto) 2.5 % (0.0-2.0); Eosinophils # (auto) 0.4 uL; Hematocrit 31.7 % (41.0-53.0); Lymphocytes % (auto) 18.7 % (10.0-50.0); Mean Corpuscular Hgb Conc. 34.6 g/dL (32.0-36.0); Mean Corpuscular Volume 89.4 fL (80.0-100.0); Monocytes # (auto) 0.5 uL; Monocytes % (auto) 8.9 % (0.0-12.0); Neutrophils # (auto) 3.4 uL; Neutrophils % (auto) 62.9 % (37.0-80.0); Nucleated Red Blood Cells % 0.1 %; Platelet Count (auto) 123 10^3/uL (140-450); Red Blood Cells 3.55 10^6/uL (4.5-5.90); Red Cell Distribution Width 17.6 % (11.8-14.3); White Blood Cell 5.5 10^3/uL (4.4-10.8)
[2017-11-11 07:19] LABS: BUN/Creatinine Ratio 2.5; Calcium 7.9 mg/dL (8.5-10.1); Potassium 3.9 mmol/L (3.5-5.1)
[2017-11-11 08:00] VITALS: BP 126/63
[2017-11-11] MEDS: cefTRIAXone 1GM/10ml IVPUSH 10 ML IV SCH (08:42)
[2017-11-11 09:00] VITALS: BP 126/63
[2017-11-11] MEDS ORDERED: GABAPENTIN 300 MG CAP PO SCH (10:00)
[2017-11-11] MEDS ORDERED: ENALAPRIL MALEATE 10 MG TAB PO SCH (10:00)
[2017-11-11] MEDS ORDERED: NIFEdipine ER 30 MG TAB PO SCH (10:00)
[2017-11-11] MEDS: CARVEDILOL 3.125 MG TAB PO SCH (10:00)
[2017-11-11] MEDS: FAMOTIDINE 20 MG TAB PO SCH (10:07)
[2017-11-11] MEDS ORDERED: DOXYCYCLINE 100 MG TAB/CAP PO SCH (11:15)
[2017-11-11 12:51] VITALS: BP 121/55
[2017-11-11] MEDS: HALOPERIDOL LACTATE 5 MG/ML INJ VIAL IM PRN (14:51)
[2017-11-11 15:16] VITALS: BP 129/76
[2017-11-11] MEDS ORDERED: ACCU-CHEK COMFORT CURVE STRIP VI SCH (16:30)
[2017-11-11 17:00] VITALS: BP 141/82
[2017-11-12] MEDS ORDERED: SODIUM CHL 0.9% 1000 ML BAG XX ONE (10:30)
== END 2017-11-11 17:57 | disposition home or self-care (01) | DRG 279 ==
LOC: ER 23:28 → OVERFLOW 23:29 → CENTRAL 11-07 13:13
PROVIDERS: ADMIT Nurse Practitioner; ATTEND Internal Medicine
PROC: 5A1D70Z Performance of Urinary Filtration, Intermittent, Less than 6 Hours Per Day (ICD-10-PCS; principal; 2017-11-07)
PROC: 5A1D70Z Performance of Urinary Filtration, Intermittent, Less than 6 Hours Per Day (ICD-10-PCS; 2017-11-10)
DX: K72.90 Hepatic failure, unspecified without coma (principal); G93.41 Metabolic encephalopathy; I13.2 Hypertensive heart and chronic kidney disease with heart failure and with stage 5 chronic kidney disease, or end stage renal disease; E11.649 Type 2 diabetes mellitus with hypoglycemia without coma; N18.6 End stage renal disease; E11.22 Type 2 diabetes mellitus with diabetic chronic kidney disease; K74.60 Unspecified cirrhosis of liver; E11.42 Type 2 diabetes mellitus with diabetic polyneuropathy; N39.0 Urinary tract infection, site not specified; R31.0 Gross hematuria; I50.9 Heart failure, unspecified; D64.9 Anemia, unspecified; Z99.2 Dependence on renal dialysis; I25.10 Atherosclerotic heart disease of native coronary artery without angina pectoris; E78.5 Hyperlipidemia, unspecified; K21.9 Gastro-esophageal reflux disease without esophagitis; B95.8 Unspecified staphylococcus as the cause of diseases classified elsewhere; N32.89 Other specified disorders of bladder; M10.9 Gout, unspecified; Z82.49 Family history of ischemic heart disease and other diseases of the circulatory system; Z83.3 Family history of diabetes mellitus; Z86.19 Personal history of other infectious and parasitic diseases
CPT/HCPCS: 36415; 51702; 70450; 71045; 76856; 80048; 80053; 80202; 81001; 82140; 82962; 83605; 83735; 84484; 85014; 85018; 85025; 85610; 85730; 87040; 87081; 87086; 87088; 87186; 90935; 92610; 93005; J0696; J0885; J7060

== ENCOUNTER 2017-12-06 22:08 | Emergency (ER) | payer MEDICAID ==
[~2017-12-06] VITALS: Ht 170.2 cm; Wt 89.8 kg
[2017-12-06 22:37] VITALS: BP 151/78
[2017-12-06 23:03] LABS: Basophils # (auto) 0 uL; Basophils % (auto) 0.6 % (0.0-2.0); Eosinophils # (auto) 0.3 uL; Eosinophils % (auto) 8.3 % (0.0-7.0); Hematocrit 29.8 % (41.0-53.0); Hemoglobin 10.1 g/dL (13.5-17.5); Lymphocytes # (auto) 1.6 uL; Lymphocytes % (auto) 46.4 % (10.0-50.0); Mean Corpuscular Hemoglobin 30.2 pg (28.0-32.0); Mean Corpuscular Hgb Conc. 33.8 g/dL (32.0-36.0); Mean Corpuscular Volume 89.4 fL (80.0-100.0); Monocytes # (auto) 0.3 uL; Monocytes % (auto) 9.7 % (0.0-12.0); Neutrophils # (auto) 1.2 uL; Nucleated Red Blood Cells % 0.3 %; Platelet Count (auto) 111 10^3/uL (140-450); Red Blood Cells 3.33 10^6/uL (4.5-5.90); White Blood Cell 3.4 10^3/uL (4.4-10.8)
[2017-12-06 23:22] LABS: Alanine Aminotransferase 54 U/L (16-61); Anion Gap 9 (5-15); Aspartate Aminotransferase 74 U/L (15-37); BUN/Creatinine Ratio 2.9; Blood Urea Nitrogen 16 mg/dL (7-18); Calcium 7.5 mg/dL (8.5-10.1); Carbon Dioxide 30 mmol/L (21-32); Chloride 99 mmol/L (98-107); GFR African American 14 mL/min; GFR Non-African American 12 mL/min; Glucose 81 mg/dL (74-106); Magnesium 1.8 mg/dL (1.6-2.6); Potassium 4.2 mmol/L (3.5-5.1); Sodium 138 mmol/L (136-145)
[2017-12-06 23:27] LABS: Alkaline Phosphatase 406 U/L (45-117); Bilirubin, Total 0.9 mg/dL (0.2-1.0); Total Protein 6.5 g/dL (6.4-8.2)
== END 2017-12-07 00:53 | disposition home or self-care (01) ==
LOC: ER 22:13
DX: J06.9 Acute upper respiratory infection, unspecified (principal); I13.2 Hypertensive heart and chronic kidney disease with heart failure and with stage 5 chronic kidney disease, or end stage renal disease; I50.9 Heart failure, unspecified; N18.6 End stage renal disease; E11.22 Type 2 diabetes mellitus with diabetic chronic kidney disease; I25.119 Atherosclerotic heart disease of native coronary artery with unspecified angina pectoris; K21.9 Gastro-esophageal reflux disease without esophagitis; E78.5 Hyperlipidemia, unspecified; Z99.2 Dependence on renal dialysis
CPT/HCPCS: 36415; 71045; 80053; 83735; 83880; 84484; 85025; 93005; 94761

== ENCOUNTER 2017-12-26 22:33 | Inpatient (IN) | payer MEDICAID ==
[~2017-12-26] VITALS: Ht 170.2 cm; Wt 89.8 kg
[2017-12-26 23:47] LABS: Basophils # (auto) 0.1 uL; Basophils % (auto) 1.8 % (0.0-2.0); Eosinophils # (auto) 0.3 uL; Eosinophils % (auto) 7.6 % (0.0-7.0); Hematocrit 28.5 % (41.0-53.0); Hemoglobin 9.5 g/dL (13.5-17.5); Lymphocytes # (auto) 1.3 uL; Lymphocytes % (auto) 30.5 % (10.0-50.0); Mean Corpuscular Hgb Conc. 33.4 g/dL (32.0-36.0); Mean Corpuscular Volume 89.6 fL (80.0-100.0); Monocytes # (auto) 0.4 uL; Monocytes % (auto) 9.6 % (0.0-12.0); Neutrophils # (auto) 2.1 uL; Neutrophils % (auto) 50.5 % (37.0-80.0); Platelet Count (auto) 153 10^3/uL (140-450); Red Blood Cells 3.18 10^6/uL (4.5-5.90); Red Cell Distribution Width 18.3 % (11.8-14.3); White Blood Cell 4.2 10^3/uL (4.4-10.8)
[2017-12-27 00:04] LABS: Alanine Aminotransferase 11 U/L (16-61); Amylase 45 U/L (25-115); Anion Gap 9 (5-15); Aspartate Aminotransferase 40 U/L (15-37); BUN/Creatinine Ratio 2.4; Blood Urea Nitrogen 10 mg/dL (7-18); Calcium 7.4 mg/dL (8.5-10.1); Carbon Dioxide 30 mmol/L (21-32); Chloride 100 mmol/L (98-107); GFR African American 20 mL/min; GFR Non-African American 16 mL/min; Glucose 71 mg/dL (74-106); Lipase 193 U/L (73-393); Potassium 3.6 mmol/L (3.5-5.1); Sodium 139 mmol/L (136-145)
[2017-12-27 00:09] LABS: Alkaline Phosphatase 386 U/L (45-117); Bilirubin, Total 0.8 mg/dL (0.2-1.0); Total Protein 6.4 g/dL (6.4-8.2)
[2017-12-27] MEDS ORDERED: MORPHINE SULFATE 4 MG/ML SYR/VIAL IV PRN (05:00)
[2017-12-27] MEDS ORDERED: ONDANSETRON HCL 4 MG/2 ML VIAL IV PRN (05:00)
[2017-12-27 07:31] LABS: Basophils # (auto) 0 uL; Basophils % (auto) 1.1 % (0.0-2.0); Eosinophils # (auto) 0.4 uL; Eosinophils % (auto) 8.7 % (0.0-7.0); Hematocrit 27.3 % (41.0-53.0); Hemoglobin 9.3 g/dL (13.5-17.5); Lymphocytes # (auto) 1.3 uL; Lymphocytes % (auto) 31.4 % (10.0-50.0); Mean Corpuscular Hemoglobin 30.8 pg (28.0-32.0); Mean Corpuscular Hgb Conc. 33.9 g/dL (32.0-36.0); Mean Corpuscular Volume 90.9 fL (80.0-100.0); Monocytes # (auto) 0.5 uL; Monocytes % (auto) 10.9 % (0.0-12.0); Neutrophils % (auto) 47.9 % (37.0-80.0); Nucleated Red Blood Cells % 0.1 %; Platelet Count (auto) 132 10^3/uL (140-450); Red Blood Cells 3.01 10^6/uL (4.5-5.90); White Blood Cell 4.2 10^3/uL (4.4-10.8)
[2017-12-27 07:47] LABS: BUN/Creatinine Ratio 2.4; Calcium 7.8 mg/dL (8.5-10.1); Potassium 3.7 mmol/L (3.5-5.1)
[2017-12-27 09:00] VITALS: BP 149/74
[2017-12-27] MEDS ORDERED: BUSP15TA60 PO (09:13)
[2017-12-27] MEDS ORDERED: INFLUENZA QUAD 2018-2019 0.5 ML SYRG IM ONE (09:15)
[2017-12-27] MEDS ORDERED: GABAPENTIN 300 MG CAP PO SCH (10:00)
[2017-12-27] MEDS ORDERED: busPIRone HCL 10 MG TAB PO SCH (10:00)
[2017-12-27] MEDS ORDERED: CARVEDILOL 3.125 MG TAB PO SCH (10:00)
[2017-12-27] MEDS ORDERED: B-COMPLEX W/ C & FOLIC ACID(NEPHROVITE TAB) PO SCH (10:00)
[2017-12-27] MEDS ORDERED: ENALAPRIL MALEATE 10 MG TAB PO SCH (10:00)
[2017-12-27 12:00] VITALS: BP 135/61
[2017-12-27 17:00] VITALS: BP 128/78
[2017-12-27] MEDS ORDERED: traZODone HCL 50 MG TAB PO SCH (22:00)
== END 2017-12-27 18:45 | disposition short-term general hospital (02) | DRG 280 ==
LOC: ER 22:33 → OVERFLOW 22:34 → CENTRAL 12-27 07:31
PROVIDERS: ADMIT Nurse Practitioner Family; ATTEND Nurse Practitioner Family
DX: K70.31 Alcoholic cirrhosis of liver with ascites (principal); I13.2 Hypertensive heart and chronic kidney disease with heart failure and with stage 5 chronic kidney disease, or end stage renal disease; N17.9 Acute kidney failure, unspecified; K72.90 Hepatic failure, unspecified without coma; N18.6 End stage renal disease; E11.22 Type 2 diabetes mellitus with diabetic chronic kidney disease; E11.649 Type 2 diabetes mellitus with hypoglycemia without coma; E83.51 Hypocalcemia; E44.1 Mild protein-calorie malnutrition; E78.5 Hyperlipidemia, unspecified; I25.10 Atherosclerotic heart disease of native coronary artery without angina pectoris; R59.1 Generalized enlarged lymph nodes; I50.9 Heart failure, unspecified; M10.9 Gout, unspecified; D64.9 Anemia, unspecified; K21.9 Gastro-esophageal reflux disease without esophagitis; Z82.49 Family history of ischemic heart disease and other diseases of the circulatory system; Z83.3 Family history of diabetes mellitus; Z68.31 Body mass index [BMI] 31.0-31.9, adult
CPT/HCPCS: 36415; 74176; 76700; 80048; 80053; 82140; 82150; 82962; 83690; 83735; 84484; 85025; 87081; G0378

== ENCOUNTER 2018-05-21 15:13 | Inpatient (IN) | payer MEDICAID | END 2018-05-23 19:30 | disposition home health service (06) | LOC: OVERFLOW 05-22 00:05 → ER 15:13 → CENTRAL 05-22 02:11 | DX: J18.9 Pneumonia, unspecified organism (principal); I13.2 Hypertensive heart and chronic kidney disease with heart failure and with stage 5 chronic kidney disease, or end stage renal disease; J81.1 Chronic pulmonary edema; E11.22 Type 2 diabetes mellitus with diabetic chronic kidney disease; N18.6 End stage renal disease; E11.65 Type 2 diabetes mellitus with hyperglycemia; I50.9 Heart failure, unspecified ==

== ENCOUNTER 2018-10-21 19:30 | Emergency (ER) | payer MEDICAID ==
[~2018-10-21 19:30] MED LIST changes: -ALBUAER3 IN; +ATOR20TA PO; -ATOR20TA50 PO; +B-CO1TAB22 PO; -CAR3125T PO; +CARV6.2551 PO; -CLOP75TA28 PO; +CLOP75TA41; -ENA10T PO; +FURO1TAB32 PO; +LEVO250T19 PO; +MET500T PO; -Nifedipine PO; -OMEP20CA74 PO; +PYRI1TAB11 PO; +PYRI200T8 OR; +VANC125PO PO
[2018-10-21 20:08] VITALS: BP 142/70
== END 2018-10-21 20:13 | disposition left against medical advice (07) ==
LOC: EDBD 19:30 → ER 19:30
DX: R10.33 Periumbilical pain (principal); I13.0 Hypertensive heart and chronic kidney disease with heart failure and stage 1 through stage 4 chronic kidney disease, or unspecified chronic kidney disease; E11.22 Type 2 diabetes mellitus with diabetic chronic kidney disease; N18.9 Chronic kidney disease, unspecified; I50.9 Heart failure, unspecified; I25.10 Atherosclerotic heart disease of native coronary artery without angina pectoris; K21.9 Gastro-esophageal reflux disease without esophagitis; M10.9 Gout, unspecified; E78.00 Pure hypercholesterolemia, unspecified; Z79.01 Long term (current) use of anticoagulants; Z79.82 Long term (current) use of aspirin; Z79.899 Other long term (current) drug therapy; Z79.2 Long term (current) use of antibiotics